=== PATIENT | female | born 1965 | race Caucasian/White ===

== ENCOUNTER 2020-08-09 10:14 | Day surgery (SDC) | payer OTHER, SELFPAY ==
--- NOTE | 2020-08-09 07:09 | W.PM.OP ---
Date of service: 08/09/20 Time of Service: 13:02 Operative Note Operative Note DATE OF PROCEDURE: 08/09/20 PRE-OP DIAGNOSIS: Carcinomatosis POST-OP DIAGNOSIS: same PROCEDURE: left Subclavian vein port-a-cath placement SURGEON: Megan Vance ANESTHESIA: MAC (ASA 3/ Robert Rosas CRNA) and local ESTIMATED BLOOD LOSS: 10 PATHOLOGY: none sent COMPLICATIONS: None Patient was transported to: same day Patient's condition: stable Implants: Power port isp MRI implantable port REF- [id number] LOT- [id number] Indications: Mrs Marcus is a pleasant 55 year old female recently diagnosed with abdominal carcinomatosis. Primary is believed to be the colon. She has started chemotherapy and would like a port placed. Risks, benefits and complications were reviewed and she wished to proceed. Procedure Description: After informed consent was obtained the patient was taken to the operating room and placed in supine position. The patient was placed under deep sedation and once comfortable the right and left chest were prepped and draped in a sterile surgical fashion. At this point a timeout was done. The patient's name, date of , procedure to be done, potential complications, DVT prophylaxis, antibiotic given were all reviewed. Fire risk was assessed. Next 2% lidocaine mixed with half percent Marcaine was injected around the clavicle on the left side. A power port kit was opened and using the large 18-gauge needle the subclavian vein was found and venous blood was easily aspirated. The syringe was removed and the guidewire was placed without any difficulty into the subclavian vein. The needle was removed. Fluoroscopy was then done which confirmed the placement of the guidewire. A small incision was made in the skin were the guidewire entered. A small 2.5 cm incision wsa made on the chest wall. Using cautery a pocket was created for the port. Using the tunneler the catheter was tunneled from the newly created pocket to the guidewire. The dilator and sheath were then placed over the guidewire into the subclavian vein. The dilator and guidewire were removed. The catheter was then advanced through the sheath into the subclavian vein. While holding the catheter in place at the skin the sheath was removed. Fluoroscopy was then used again and the catheter was noted to be within the atrium and so it was pulled up until it was just above the atrium. The catheter was then cut to the right length and attached to the port. The port was placed into the pocket and fit snugly. The port was flushed with normal saline and a small amount of blood was easily aspirated. The port was then flushed with another 10 cc of normal saline and then heparin. The skin was closed using 4-0 Vicryl. The skin was cleaned and dried and skin affix was applied to the port site as well as to the small stab incision underneath the clavicle. The patient was woken up and taken back to same day surgery in stable condition. Sponge, instrument, and needle counts were correct at the end of the case. A stat chest x-ray was ordered and is pending at this time.
--- NOTE | 2020-08-09 07:10 | W.PM.DSUDISC ---
Discharge Plan Disposition Patient Disposition: HOME Condition: Good Discharge Details Reason For Visit: Port placement Attending Provider: Megan Vance Primary Care Provider: Destini Greene Home Meds and New Rx's Prescriptions: Continued glimepiride 1 MG tablet 1 mg PO DAILY RF: 0 pioglitazone [Actos] 30 MG tablet 30 mg PO DAILY RF: 0 losartan [Cozaar] 100 MG tablet 25 mg PO DAILY RF: 0 metformin 500 MG tablet 1,000 mg PO BID RF: 0 Januvia 100 MG tablet 100 mg PO DAILY RF: 0 acetaminophen [Tylenol] 325 mg capsule 650 mg PO Q6H PRNRF: 0 tramadol 50 mg tablet 50 mg PO Q6H PRNRF: 0 simvastatin 20 mg tablet 20 mg PO DAILY RF: 0 enoxaparin 40 mg/0.4 mL syringe 40 mg subcut DAILY RF: 0 No Action pantoprazole [Protonix] [address] For Susp In Packet 40 mg PO DAILY RF: 0 Discharge Instructions Instructions: How to Care for Your Implanted Venous Access Port (DC) Additional Instructions: Activity at Home after surgery: 1. Make sure you walk outside at least 4 times per day 2. You should be able to climb a flight of stairs 3. No driving while in pain or taking pain medications Diet, Nutrition, & wound healin. Avoid alcohol until after you are recovered from your surgery 2. Make sure to eat plenty of lean protein (meat, fish, eggs, cottage cheese, beans) 3. Eat a variety of fruits and vegetables. Eat plenty of high fiber foods to avoid constipation. 4. Drink plenty of liquids to stay hydrated and avoid constipation Pain Medications: 1. Tylenol 650 mg every 6 hours and Ibuprofen 600 mg every 6 hours as needed for pain For Constipation: 1. Take Milk of Magnesia or MiraLax as needed for constipation Other: 1. You may shower daily. Do not scrub the incisions 2. Do not soak the incisions for 1 week 3. You may alternate ice and heat as needed for pain and swelling Wound Care: 1. Keep the incisions clean and dry Please call our office if you develop: 1. Fevers >101.5 2. Nausea or Vomiting 3. Worsening pain 4. Redness and thick discharge from the wounds If after hours please call the Hospital at and ask to speak to the on-call surgeon Activity:: Activity as Tolerated Diet:: As Tolerated Discharge Orders Discharge Orders: Discharge Order (Routine); Ordered 08/09/20 Ordered By: Megan Vance
--- NOTE | 2020-08-09 09:33 | W.PREOPHP ---
Date of service: 08/09/20 Time of Service: 11:52 Assessment and Plan Assessment and plan (1) Abdominal carcinomatosis: Status: Acute Assessment and plan: 55 year old female diagnosed with carcinomatosis. primary is suspected to be colon. She is here today for a port placement for chemotherapy. Risks, benefits and complications were reviewed as well as the procedure itself. Risks, benefits, complications of Mediport placement were reviewed with the patient. Complications include but are not limited to bleeding, infection, wound dehiscence, skin necrosis, seroma, hematoma, injury to subclavian vein or superior vena cava, pneumothorax, venous thrombosis and malfunction of the port. Questions were entertained and answered to his satisfaction and he wished to proceed. No guarantees were given or implied. History of Present Illness History of Present Illness Chief Complaint: omental carcinomatosis/ ovarian cancer Narrative: Mrs. Marcus is a pleasant 55 year old female who is here today for a port-placement. She was diagnosed with omental carcinomatosis on 07/15 while visiting her son in [facility]. She underwent surgery and is now going to be starting chemotherapy with Dr. Velazquez. The primary is believed to be colon. She did have a total Hysterectomy, oopherectomy and colon resection with anastamosis. She has HTN diabetes type 2 Review of Systems Cardiovascular Cardiovascular: Denies chest pain, Denies chest pain at rest, Denies irregular heart rhythm, Denies dyspnea and Denies dyspnea on exertion Respiratory Respiratory: Reports cough, Denies dyspnea and Denies dyspnea on exertion Gastrointestinal Gastrointestinal: Reports as per HPI Genitourinary Genitourinary: Denies dysuria, Reports urinary incontinence and Denies urinary urgency Endocrine Endocrine: Reports system reviewed and no additional complaints, except as documented Hematologic/Lymphatic Hematologic/Lymphatic: Denies easy bruising and Denies lymphadenopathy [facility] Medical History Colon cancer Diabetes mellitus, type 2 Hyperlipidemia Hypertension Surgical History (Updated 08/09/20 @ 10:30 by Leoncio Page) section (~1985) Colonoscopy - MAC (08/14/16) History of appendectomy Hx of hysterectomy 07/15/20 Ligation of fallopian tube 1990 Family History (Updated 01/09/14 @ 21:37 by ) Other Diabetes Heart disease Personal history of malignant neoplasm Social History Smoking/Tobacco Use Status: Never Smoking risk assessment performed?: Yes Alcohol Intake: current Alcohol Intake frequency: holidays/special occasions only Drug use: Never Substance use type: does not use Do you feel safe at home: Yes Do you feel safe in your relationship?: Yes Meds Home Medications and Allergies Home Medications Medication Instructions Recorded Confirmed Type glimepiride 1 mg PO DAILY tab-cap 12/21/12 08/09/20 History losartan [Cozaar] 25 mg PO DAILY tab-cap 12/21/12 08/09/20 History pioglitazone [Actos] 30 mg PO DAILY tab-cap 12/21/12 08/09/20 History Januvia 100 mg PO DAILY tab-cap 07/29/16 08/09/20 History metformin 1,000 mg PO BID tab-cap 07/29/16 08/09/20 History enoxaparin 40 mg SUBCUT DAILY 08/07/20 08/09/20 History simvastatin 20 mg PO DAILY 08/07/20 08/09/20 History acetaminophen 325 mg capsule 650 mg PO Q6H PRN cap 08/08/20 History tramadol 50 mg tablet 50 mg PO Q6H PRN 08/08/20 History pantoprazole [Protonix] 40 mg PO DAILY 08/09/20 08/09/20 History Allergies Allergy/AdvReac Type Severity Reaction Status Date / Time Penicillins Allergy Unknown Skin Rash Unverified 08/07/20 09:01 metoclopramide HCl AdvReac Severe Headache Unverified 08/14/16 08:40 [From Reglan] prochlorperazine edisylate AdvReac Severe Nausea Unverified 08/14/16 08:40 [From Compazine] prochlorperazine maleate AdvReac Severe Nausea Unverified 08/14/16 08:40 [From Compazine] d.h.e. AdvReac Severe Headache Uncoded 08/14/16 08:40 Exam Const General: healthy appearing and comfortable Resp Effort & Inspection: normal respiratory effort Auscultation: clear to auscultation bilaterally Cardio Rate: regular rate Rhythm: regular rhythm Heart Sounds: no click, no gallops and no murmurs
[2020-08-09 10:37] VITALS: BP 137/88; PULSE 79; RESP 16; TEMP 36.6; O2SAT 97
[2020-08-09] MEDS: Lactated Ringers 1,000 ML 80 ML IV (11:12)
--- NOTE | 2020-08-09 11:30 | DI.RAD_ITS ---
EXAM: RF LINE PLACEMENT OR CLINICAL HISTORY: port placement TECHNIQUE: 2D and realtime digital imaging was performed. CONTRAST MATERIAL: Refer to procedure report. COMPARISON: No exams were available for comparison FINDINGS: Fluoroscopy was provided for Dr. Vance during the performance of a port placement. Please refer to the procedure report for complete details. Fluoro time: 7.7 seconds IMPRESSION:
[2020-08-09] MEDS: ceFAZolin 2 GM/50 ML BAG IVPB (12:30)
[2020-08-09] MEDS: Bupivacaine 0.5% Pres-Free 30 ML VIAL (12:55)
[2020-08-09] MEDS: Heparin 500 UNITS/5 ML SYRINGE (12:55)
--- NOTE | 2020-08-09 13:00 | DI.RAD_ITS ---
EXAM: XR PORTABLE CHEST AP POST LINE CLINICAL HISTORY: post port placement TECHNIQUE: 2D digital imaging was performed. COMPARISON: No exams were available for comparison FINDINGS: MEDIASTINUM: Normal. HEART: Normal. PULMONARY VASCULATURE: Normal. LUNGS: Clear. PLEURAL SPACE: No pleural effusion or pneumothorax. BONE:Within normal limits for the patient's age. OTHER FINDINGS:There is a indwelling central venous catheter in place via the left subclavian vein. The tip of the catheter is seen in the superior vena cava in good position. IMPRESSION: Status post port placement. The tip of the catheter is in good position in the superior vena cava. No pneumothorax. DATA REPOSITORY: RADIATION DOSE DELIVERED:
[2020-08-09] MEDS: Lidocaine 2% Multi-Dose 50 ML VIAL (13:14)
[2020-08-09] MEDS: Normal Saline 20 ML VIAL (13:15)
[2020-08-09 13:43] VITALS: BP 110/72; PULSE 71; RESP 16; TEMP 36.7; O2SAT 95
== END 2020-08-09 14:08 | disposition home or self-care (01) ==
LOC: SUR 10:15
PROVIDERS: PCP Family Medicine; Visit Provider Surgery
PROC: (CPT 36571; principal; 2020-08-09 11:45)
DX: Z45.2 Encounter for adjustment and management of vascular access device (principal); C80.0 Disseminated malignant neoplasm, unspecified
CPT/HCPCS: 36571; 77001; 71045; 76000; NC; C1788; J0690; J2001; J2250; J2405

== ENCOUNTER 2020-08-09 13:46 | Outpatient (REF) | payer OTHER, SELFPAY ==
[2020-08-09 14:09] LABS: Abs Immature Grans 0.09 10^3/uL (0.0-0.06); Absolute Basophil Count 0.05 10^3/uL (0.0-0.2); Absolute Eosinophil Count 0.19 10^3/uL (0.0-0.7); Absolute Lymphocyte Count 1.85 10^3/uL (1.2-3.4); Absolute Monocyte Count 0.48 10^3/uL (0.1-0.8); Absolute Neutrophil Count 4.46 10^3/uL (1.2-6.7); Basophils % 0.7; Eosinophils % 2.7; HCT 38.5 % (36.0-46.0); HGB 12.2 g/dL (11.2-15.7); Immature Grans % 1.3; MCH 26.6 pg (27.0-33.0); MCHC 31.7 % (32.0-36.0); MCV 84.1 fL (80-95); MPV 9.6 fL (8.0-11.0); Monocytes % 6.7; Neutrophils % 62.6; Nucleated RBC 0 %; Platelet Count 517 10^3/uL (130-400); RBC 4.58 10^6/uL (3.93-5.22); RDW 11.9 % (11.7-14.6); RDW-SD 36.1 fL; WBC 7.12 10^3/uL (4.4-10.8)
[2020-08-09 14:42] LABS: ALT 35 U/L (14-59); AST 19 U/L (15-37); Albumin 3.9 g/dL (3.4-5.0); Alkaline Phosphatase 247 U/L (46-116); Anion Gap 11.1 mmol/L (3-11); BUN 25 mg/dL (7-18); Bilirubin, Total 0.4 mg/dL (0.2-1.0); CO2 24.9 mmol/L (21.0-32.0); CREATININE 0.64 mg/dL (0.55-1.02); Calcium 9.5 mg/dL (8.5-10.1); Chloride 100 mmol/L (98-107); Glucose 95 mg/dL (74-106); Potassium 4.5 mmol/L (3.5-5.1); Sodium 136 mmol/L (136-145); Total Protein 7.4 g/dL (6.4-8.2)
[2020-08-09 14:44] LABS: Hemoglobin A1C 9.6 % (<5.7)
[2020-08-10 10:18] LABS: CA 125 39 U/mL (<30)
[2020-08-11 10:16] LABS: CA 19-9 35 U/mL (<35)
== END 2020-08-09 14:06 ==
LOC: LBN 13:46
PROVIDERS: PCP Family Medicine; Visit Provider Internal Medicine
DX: C76.2 Malignant neoplasm of abdomen (principal)
CPT/HCPCS: 80053; 86304; 83036; 85025; 86301

== ENCOUNTER 2020-10-02 15:36 | Outpatient (CLI) | payer OTHER, SELFPAY ==
[2020-10-02 16:07] LABS: Abs Immature Grans 0.08 10^3/uL (0.0-0.06); Absolute Basophil Count 0.05 10^3/uL (0.0-0.2); Absolute Eosinophil Count 0.25 10^3/uL (0.0-0.7); Absolute Lymphocyte Count 2.04 10^3/uL (1.2-3.4); Absolute Monocyte Count 0.45 10^3/uL (0.1-0.8); Absolute Neutrophil Count 4.71 10^3/uL (1.2-6.7); Basophils % 0.7; Eosinophils % 3.3; HCT 38.2 % (36.0-46.0); HGB 12.4 g/dL (11.2-15.7); Immature Grans % 1.1; Lymphocytes % 26.9; MCH 26.6 pg (27.0-33.0); MCHC 32.5 % (32.0-36.0); MPV 9.6 fL (8.0-11.0); Monocytes % 5.9; Neutrophils % 62.1; Nucleated RBC 0 %; Platelet Count 288 10^3/uL (130-400); RBC 4.66 10^6/uL (3.93-5.22); RDW 14.6 % (11.7-14.6); WBC 7.58 10^3/uL (4.4-10.8)
[2020-10-02 17:24] LABS: ALT 45 U/L (14-59); AST 24 U/L (15-37); Albumin 3.6 g/dL (3.4-5.0); Alkaline Phosphatase 170 U/L (46-116); Anion Gap 11.4 mmol/L (3-11); BUN 17 mg/dL (7-18); Bilirubin, Total 0.4 mg/dL (0.2-1.0); CO2 26.6 mmol/L (21.0-32.0); CREATININE 0.8 mg/dL (0.55-1.02); Calcium 9.2 mg/dL (8.5-10.1); Chloride 103 mmol/L (98-107); Glucose 116 mg/dL (74-106); Magnesium 1.9 mg/dL (1.8-2.4); Potassium 4.1 mmol/L (3.5-5.1); Sodium 141 mmol/L (136-145)
== END 2020-10-02 15:37 | disposition home or self-care (01) ==
LOC: LBO 15:37
PROVIDERS: PCP Family Medicine; Visit Provider Internal Medicine
DX: C18.9 Malignant neoplasm of colon, unspecified (principal)
CPT/HCPCS: 36415; 80053; 83735; 85025

== ENCOUNTER 2020-10-18 04:39 | Outpatient (CLI) | payer OTHER, SELFPAY ==
[2020-10-18 13:03] LABS: Abs Immature Grans 0.12 10^3/uL (0.0-0.06); Absolute Basophil Count 0.04 10^3/uL (0.0-0.2); Absolute Eosinophil Count 0.19 10^3/uL (0.0-0.7); Absolute Lymphocyte Count 2.03 10^3/uL (1.2-3.4); Absolute Monocyte Count 0.56 10^3/uL (0.1-0.8); Absolute Neutrophil Count 2.47 10^3/uL (1.2-6.7); Basophils % 0.7; Eosinophils % 3.5; HCT 39.4 % (36.0-46.0); HGB 12.9 g/dL (11.2-15.7); Immature Grans % 2.2; Lymphocytes % 37.5; MCH 27.3 pg (27.0-33.0); MCHC 32.7 % (32.0-36.0); MCV 83.3 fL (80-95); MPV 9.6 fL (8.0-11.0); Monocytes % 10.4; Neutrophils % 45.7; Nucleated RBC 0 %; RBC 4.73 10^6/uL (3.93-5.22); RDW 15.2 % (11.7-14.6); RDW-SD 46.4 fL; WBC 5.41 10^3/uL (4.4-10.8)
[2020-10-18 13:33] LABS: Diff Comment Diff Reviewed; Platelet Count 248 10^3/uL (130-400)
[2020-10-18 13:34] LABS: Polychromasia Present
[2020-10-18 13:47] LABS: ALT 69 U/L (14-59); AST 26 U/L (15-37); Albumin 3.5 g/dL (3.4-5.0); Alkaline Phosphatase 193 U/L (46-116); Anion Gap 11.5 mmol/L (3-11); BUN 17 mg/dL (7-18); Bilirubin, Total 0.3 mg/dL (0.2-1.0); CO2 24.5 mmol/L (21.0-32.0); CREATININE 0.7 mg/dL (0.55-1.02); Chloride 104 mmol/L (98-107); Glucose 147 mg/dL (74-106); Magnesium 1.9 mg/dL (1.8-2.4); Potassium 3.9 mmol/L (3.5-5.1); Sodium 140 mmol/L (136-145); Total Protein 7.1 g/dL (6.4-8.2)
[2020-10-19 09:10] LABS: CA 125 42 U/mL (<30)
[2020-10-20 09:23] LABS: CA 19-9 55 U/mL (<35)
== END 2020-10-18 04:40 | disposition home or self-care (01) ==
LOC: LBO 04:40
PROVIDERS: PCP Internal Medicine; Visit Provider Internal Medicine
DX: C18.9 Malignant neoplasm of colon, unspecified (principal)
CPT/HCPCS: 36415; 80053; 86304; 83735; 85025; 86301

== ENCOUNTER 2020-12-14 02:20 | Outpatient (CLI) | payer OTHER, SELFPAY ==
[2020-12-14 09:25] LABS: Abs Immature Grans 0.08 10^3/uL (0.0-0.06); Absolute Basophil Count 0.04 10^3/uL (0.0-0.2); Absolute Lymphocyte Count 1.52 10^3/uL (1.2-3.4); Absolute Monocyte Count 0.56 10^3/uL (0.1-0.8); Absolute Neutrophil Count 2.08 10^3/uL (1.2-6.7); Basophils % 0.9; Eosinophils % 2.3; HCT 41.1 % (36.0-46.0); HGB 13.5 g/dL (11.2-15.7); Immature Grans % 1.8; Lymphocytes % 34.7; MCH 29.7 pg (27.0-33.0); MCHC 32.8 % (32.0-36.0); MCV 90.3 fL (80-95); MPV 9.2 fL (8.0-11.0); Monocytes % 12.8; Neutrophils % 47.5; Nucleated RBC 0 %; Platelet Count 171 10^3/uL (130-400); RBC 4.55 10^6/uL (3.93-5.22); RDW-SD 46.1 fL; WBC 4.38 10^3/uL (4.4-10.8)
[2020-12-14 09:46] LABS: Hemoglobin A1C 8.1 % (<5.7)
[2020-12-14 10:19] LABS: COMMENT (LAB VIEW ONLY) 144.93 mg/dL; Microalb ug/mg Crea 20.3 ug/mg Cr
[2020-12-14 10:28] LABS: ALT 117 U/L (14-59); AST 48 U/L (15-37); Albumin 3.5 g/dL (3.4-5.0); Alkaline Phosphatase 275 U/L (46-116); Anion Gap 9.3 mmol/L (3-11); BUN 13 mg/dL (7-18); Bilirubin, Total 0.4 mg/dL (0.2-1.0); CO2 28.7 mmol/L (21.0-32.0); CREATININE 0.8 mg/dL (0.55-1.02); Calcium 8.6 mg/dL (8.5-10.1); Chloride 101 mmol/L (98-107); Glucose 257 mg/dL (74-106); Magnesium 1.5 mg/dL (1.8-2.4); Potassium 3.8 mmol/L (3.5-5.1); Sodium 139 mmol/L (136-145)
== END 2020-12-14 02:21 | disposition home or self-care (01) ==
LOC: LBO 02:20
PROVIDERS: PCP Internal Medicine; Visit Provider Internal Medicine
DX: C18.9 Malignant neoplasm of colon, unspecified (principal); E11.9 Type 2 diabetes mellitus without complications; I10 Essential (primary) hypertension
CPT/HCPCS: 36415; 80053; 82043; 82570; 83036; 83735; 85025

== ENCOUNTER 2021-06-11 02:25 | Outpatient (CLI) | payer OTHER, SELFPAY ==
[2021-06-11 12:31] LABS: Source Nasal/Nares
[2021-06-11 21:45] LABS: COVID-19 PCR Negative (Negative)
== END 2021-06-11 02:26 | disposition home or self-care (01) ==
LOC: LBO 02:25
PROVIDERS: PCP Internal Medicine; Visit Provider Surgery
DX: Z20.822 Contact with and (suspected) exposure to COVID-19 (principal); Z01.818 Encounter for other preprocedural examination
CPT/HCPCS: 87635

== ENCOUNTER 2021-06-13 12:18 | Inpatient (IN) | payer OTHER, SELFPAY ==
[2021-06-13] VITALS (18 sets, daily range): BP systolic 94–174; BP diastolic 51–99; PULSE 65–90; RESP 14–25; TEMP 36.4–37; O2SAT 92–99; BMI 29.7
--- NOTE | 2021-06-13 06:37 | ROE_ITS ---
Date of service: 06/13/21 Time of Service: 12:00 Operative Note Operative Note DATE OF PROCEDURE: 06/13/21 PRE-OP DIAGNOSIS: Biliary Dyskinesia POST-OP DIAGNOSIS: same PROCEDURE: Open Cholecystectomy SURGEON: Megan Vance LEGAL ADVISOR: Autumn Heath ANESTHESIA TYPE: General LMA/ETT Refer to Anesthesia Record ESTIMATED BLOOD LOSS: 200 PATHOLOGY: other (Gallbladder and contents) COMPLICATIONS: Other (conversion to open) Patient was transported to: PACU Patient's condition: stable Implants: None Indications: Mrs Marcus is a pleasant 56-year-old female who was unfortunately diagnosed with an obstructing colon cancer last year. She underwent a hemicolectomy with anastomosis and was started on chemotherapy. Her PET scans have shown improvement in the metastatic burden in her abdomen. She continues to be on FOLFIRI every 2 weeks and Avastin. Her Avastin has been stopped for the last 5 weeks in case that she has surgery. Her HIDA scan showed an ejection fracture of 16%. She has postprandial pain and is losing weight due to fear of eating. She has not had any cardiac or pulmonary complications from her treatment. I had a long discussion with Sallie regarding doing a laparoscopic cholecystectomy on her. There is certainly a risk of having to do this open d epending on scarring that I may find once I get in there. Because of her chemotherapy treatments she is also at higher risk for infection, wound dehiscence and hernia at her incision sites. We discussed other common complications of laparoscopic or open cholecystectomy including injury to the common bile duct, bleeding from injuries to the hepatic vessels or bleeding from the liver secondary to inflammation. After explaining all of the risks and benefits 10 he would like to proceed with laparoscopic possible open cholecystectomy as she is having a lot of pain and is unable to eat. Proceed with laparoscopic cholecystectomy possible open Findings: Dense adhesions of bowel to the midline incision as well as dense adhesions from stomach to liver Procedure Description: After informed consent was obtained the patient was brought to the operating room, placed in a supine position and monitors were applied. SCDs were applied to her lower extremities and she was placed under general anesthesia and intubated without difficulty. Her abdomen was then prepped and draped in a sterile fashion using ChloraPrep. At this point a timeout was done and the patient's name, date of , procedure type, allergies to medications, metal in her body, antibiotic and DVT prophylaxis, and fire risk was assessed. At this point Exparel mixed 50/50 with 0.25% Bupivocaine was injected just above the umbilicus into the dermis and subcutaneous tissue. A small 2 cm incision was made and dissection was done with cautery through the subcutaneous tissue down to the fascia. The subcutaneous tissue was retracted and the fascia was grasped with Raghavendra's. The fascia was sharply opened the rectus muscle was identified and swept to the side. The peritoneum was grasped and sharply opened. There were dense adhesions noted which I tried to get down so I could put in a port. As I was trying to get into the peritoneum I opened what I thought was peritoneum but ended up making a small enterotomy into the transverse colon. There was no spill of stool. The enterotomy was quickly closed with interrupted 2-0 silk sutures. The skin incision was then opened superiorly a little bit more and again dissection was done through the subcutaneous tissue with cautery. The fascia was opened sharply. There were still dense adhesions and I could not find a plane between the adhesions and the peritoneum. The skin incision was increased superiorly and again dissection was done through the subcutaneous tissue down to the fascia using cautery. The fascia was opened sharply and at this point I was able to find a plane between the peritoneum and some of the adhesions. The falciform ligament was identified and cut. I was able to then gently sweep the adhesions as well as use sharp dissection to bring down the bowel from the peritoneum. Once the bowel was reduced a abdominal retractor was placed and I was able to feel the liver. There were thick adhesions between the stomach and the liver. These were gently removed using both sharp dissection as well as some blunt dissection until I was able to see the gallbladder. The body of the gallbladder was grasped with a [place] and pulled down and out. I followed with my finger down to the neck of the gallbladder and gently dissected with a right angle the neck of the gallbladder. I was able to find the cystic duct which was small in size. I dissected at 360 degrees right at the junction with the gallbladder and placed three clips, two distal and one proximal and cut in between. I then dissected the cystic artery which was just medial to the duct again three clips were placed to distal and one proximal and the duct was cut. Some bleeding was noted and a hemostat was placed on the artery. Another clip was placed and this stopped the bleeding. The gallbladder was then dissected away from the liver bed using mostly blunt dissection as well as some cautery. Once the gallbladder was removed it was placed in formalin and sent to pathology. Next the liver bed was identified and there was some bleeding noted. The liver bed was cauterized and a piece of Surgicel was applied. A lap was placed against it and pressure was held. The lap was removed as well as the Surgicel and a little bit more bleeding was identified and this was cauterized. Another piece of Surgicel was applied to the liver bed and a lap pad was placed over that and pressure was again held. After about a minute of holding pressure the lap pad was removed as well as the Surgicel. No more bleeding was identified. I small nodular area was noted on the liver edge. This looked like calcification. The abdomen was irrigated with a liter of warm saline and the effluent was suctioned out. The effluent was clear. Next the transverse colon was inspected and a second layer of sutures was placed over the fixed enterotomy with Lembert sutures. Three sheets of Interceed were then placed over the bowel to help with adhesions. The fascia was closed with two #1 Vicryl sutures. The subcutaneous tissue was irrigated with some more saline and dried. The subcutaneous tissue was reapproximated using 3-0 Vicryl and the dermis was closed using 4-0 Vicryl. The local anesthetic was then injected into the dermis along the incision as well as into the subcutaneous tissue. The skin was cleaned and dried and a chu dressing was applied. Sponge, instrument and needle counts were correct at the end of the case. Patient was then woken up extubated taken back to PACU in stable condition. There were no immediate complications.
--- NOTE | 2021-06-13 06:39 | PDOC.DSDIS_ITS ---
Discharge Plan Disposition Patient Disposition: HOME Condition: Good Discharge Details Reason For Visit: Biliary Cholic Attending Provider: Megan Vance Primary Care Provider: Candice Velazquez Home Meds and New Rx's Prescriptions: No Action docusate sodium [Colace] 100 mg capsule 100 mg PO DAILY RF: 0 zolpidem [Ambien] 10 mg tablet 10 mg PO QHS PRNRF: 0 glimepiride 1 MG tablet 1 mg PO DAILY RF: 0 pioglitazone [Actos] 30 MG tablet 30 mg PO DAILY RF: 0 metformin 500 MG tablet 1,000 mg PO BID RF: 0 Januvia 100 MG tablet 100 mg PO DAILY RF: 0 acetaminophen [Tylenol] 325 mg capsule 650 mg PO Q6H PRNRF: 0 tramadol 50 mg tablet 50 mg PO Q6H PRNRF: 0 citalopram 20 mg tablet 20 mg PO HS RF: 0 lactulose 10 gram/15 mL solution 10 g PO DAILY RF: 0 senna 8.6 mg capsule 8.6 mg PO DAILY RF: 0 lidocaine-prilocaine 2.5-2.5 % cream 1 applic topical ONCE RF: 0 magnesium citrate Solution 50 ml PO DAILY PRNRF: 0 dexamethasone 4 mg tablet 4 mg PO BID RF: 0 ondansetron HCl 8 mg tablet 8 mg PO Q8H RF: 0 Avastin 25 mg/mL solution IV RF: 0 simvastatin 20 mg tablet 20 mg PO DAILY RF: 0 pantoprazole [Protonix] [address] For Susp In Packet 40 mg PO DAILY RF: 0 Discharge Instructions Additional Instructions: Activity at Home after surgery: 1. Make sure you walk outside at least 4 times per day 2. You should be able to climb a flight of stairs 3. No driving while in pain or taking pain medications 4. No strenuous activity or heavy lifting for 2 weeks (laparoscopic surgery) or 4 weeks (open surgery) Diet, Nutrition, & wound healin. Avoid alcohol until after you are recovered from your surgery 2. Make sure to eat plenty of lean protein (meat, fish, eggs, cottage cheese, beans) 3. Eat a variety of fruits and vegetables. Eat plenty of high fiber foods to avoid constipation. 4. Drink plenty of liquids to stay hydrated and avoid constipation Pain Medications: 1. Tylenol 650mg every 6 hours as needed and Ibuprofen 600 mg every 6 hours as needed. You may alternate between the 2 medications every 3 hours 2. If a narcotic has been prescribed take as directed only for breakthrough pain For Constipation: 1. Take Milk of Magnesia or MiraLax as needed for constipation Other: 1. You may shower daily. Do not scrub the incisions 2. Do not soak the incisions for 1 week 3. You may alternate ice and heat as needed for pain and swelling Wound Care: 1. Keep the incisions clean and dry Please call our office if you develop: 1. Fevers >101.5 2. Nausea or Vomiting 3. Worsening pain 4. Redness and thick discharge from the wounds If after hours please call the Hospital at and ask to speak to the on-call surgeon Referrals: Megan Vance MD [ [facility] STAFF PHYSICIAN] - Activity:: as above Shower/Bathe:: 24 hours Diet:: low fat
[2021-06-13] MEDS: Acetaminophen 500 MG TAB 1000 MG PO ×2 (09:51→17:17)
[2021-06-13] MEDS: Lactated Ringers 1,000 ML 80 ML IV (09:52)
[2021-06-13] MEDS: Celecoxib 200 MG CAP PO (09:52)
--- NOTE | 2021-06-13 09:57 | W.ANESPRE ---
General Info Date of Service Date Performed: 06/13/21 Height: 5 ft 4 in Weight: 78.6 kg Body Mass Index (BMI): 29.7 Surgical Procedure: Operation Date: 06/13/21 09:40 Proposed Procedures Side Surgeon p Cholecystectomy Laparoscopic Megan Vance MD Actual Procedures Side Surgeon p Cholecystectomy Laparoscopic Not Applicable Megan Vance MD Pre-Op Diagnosis Post-Op Diagnosis CHOLECYSTITIS Dyskinesia of gallbladder Meds Allergies and Home Medications Allergies Allergy/AdvReac Type Severity Reaction Status Date / Time Penicillins Allergy Unknown Skin Rash Unverified 06/13/21 09:35 metoclopramide HCl AdvReac Severe Headache Unverified 06/13/21 09:35 [From Reglan] prochlorperazine edisylate AdvReac Severe Nausea Unverified 06/13/21 09:35 [From Compazine] prochlorperazine maleate AdvReac Severe Nausea Unverified 06/13/21 09:35 [From Compazine] d.h.e. AdvReac Severe Headache Uncoded 06/13/21 09:35 Home Medication Medication Instructions Recorded glimepiride 1 mg PO DAILY tab-cap 12/21/12 pioglitazone [Actos] 30 mg PO DAILY tab-cap 12/21/12 Januvia 100 mg PO DAILY tab-cap 07/29/16 metformin 1,000 mg PO BID tab-cap 07/29/16 simvastatin 20 mg PO DAILY 08/07/20 acetaminophen 325 mg capsule 650 mg PO Q6H PRN cap 08/08/20 tramadol 50 mg tablet 50 mg PO Q6H PRN 08/08/20 pantoprazole [Protonix] 40 mg PO DAILY 08/09/20 bevacizumab 25 mg/mL intravenous IV 05/22/21 solution citalopram 20 mg tablet 20 mg PO HS 05/22/21 dexamethasone 4 mg tablet 4 mg PO BID 05/22/21 lactulose 10 gram/15 mL oral 10 g PO DAILY 05/22/21 solution lidocaine-prilocaine 2.5 %-2.5 % 1 applic TOPICAL ONCE 05/22/21 topical cream magnesium citrate 50 ml PO DAILY PRN ml 05/22/21 ondansetron HCl 8 mg tablet 8 mg PO Q8H 05/22/21 sennosides 8.6 mg capsule 8.6 mg PO DAILY 05/22/21 docusate sodium 100 mg capsule 100 mg PO DAILY 06/05/21 zolpidem 10 mg tablet 10 mg PO QHS PRN 06/05/21 Current Visit Medications: Current Medications Generic Name Dose Route Start Last Admin Trade Name Terrie PRN Reason Stop Dose Admin Acetaminophen 1,000 mg 06/13/21 06:00 06/13/21 09:51 Acetaminophen 500 Mg Tab PO 07/12/21 23:59 1,000 mg PREOP MORGAN Administration Celecoxib 200 mg 06/13/21 06:00 06/13/21 09:52 Celecoxib 200 Mg Cap PO 07/12/21 23:59 200 mg PREOP MORGAN Administration Ringer's Solution 1,000 mls @ 80 mls/hr 06/13/21 06:00 06/13/21 09:52 IV 07/12/21 23:59 80 mls/hr INFUSION MORGAN Administration Ampicillin Sodium/Sulbactam 100 mls @ 200 mls/hr 06/13/21 06:00 Sodium 3 gm/ Sodium Chloride IVPB 06/13/21 23:59 PREOP MORGAN Ondansetron HCl 4 mg/ Sodium 52 mls @ 200 mls/hr 06/13/21 06:40 Chloride IVPB Q6H PRN PRN IV Miscellaneous Supplies 1 each 06/13/21 06:00 Iv Access IV 07/12/21 23:59 DIRECTED MORGAN Oxycodone HCl 5 mg 06/13/21 06:40 Oxycodone 5 Mg Tab PO Q3H PRN PRN Pain Sodium Chloride 0 ml 06/13/21 06:00 Normal Saline Flush 10 Ml Syr IV 07/12/21 23:59 PRN PRN Sodium Chloride 0 ml 06/13/21 06:00 Normal Saline 10 Ml Vial IJ 07/12/21 23:59 DIRECTED PRN Sterile Water 0 ml 06/13/21 06:00 Water,Injection,Sterile 10 Ml Vial IJ 07/12/21 23:59 DIRECTED PRN PFSH Active Problems Active Problems: Problem Status Onset Code Dyskinesia of gallbladder K82.8 Port-A-Cath in place Z95.828 Abdominal carcinomatosis C76.2 Medical History Medical History Colon cancer Diabetes mellitus, type 2 Dyskinesia of gallbladder Hyperlipidemia Hypertension Surgical History Surgical History section (~1985) Colonoscopy - MAC (08/14/16) History of appendectomy Hx of hysterectomy 07/15/20 Ligation of fallopian tube 1990 S/P partial colectomy 2020- [place] Tobacco Smoking/Tobacco Use Status: Never Alcohol Alcohol Intake: current Alcohol intake frequency: holidays/special occasions only Substance Use Substance use: Never Substance use type: does not use Vital Signs and Lab Results Vital Signs Most Recent Vital Signs in EMR: Most Recent Vital Signs Temp Pulse Resp BP Pulse Ox 36.7 C 79 18 143/88 H 99 06/13/21 09:30 06/13/21 09:30 06/13/21 09:30 06/13/21 09:30 06/13/21 09:30 Point of Care Results Point of Care Results: Finger Stick Blood Glucose 218 06/13/21 09:47 Lab Results Blood Type / Crossmatch: No Data to Display Complete Blood Count: No Data to Display Complete Metabolic Panel: No Data to Display Liver Function Panel: No Data to Display Coagulation Panel: No Data to Display Cardiac Panel: No Data to Display Arterial Blood Gas: No Data to Display Venous Blood Gas: No Data to Display Pancreas Panel: No Data to Display Thyroid Panel: No Data to Display Infectious Disease: Coronavirus (COVID-19)(PCR) Negative (Negative) 06/11/21 11:41 06/11/21 Coronavirus 2019 Source Nasal/Nares 06/11/21 11:41 06/11/21 Blood Cultures: No Data to Display Toxicology Panel: No Data to Display Anesthesia Assessment and Plan Anesthesia History Personal History: No History of Anesthesia Complications Family History: No Family History of Anesthesia Complications Exercise Tolerance Exercise Tolerance: Metabolic Equivalents>4 Pertinent Negatives Pertinent Negatives: No Symptoms of GERD, No Major Cardiovascular Symptoms or Complaints, No Major Pulmonary Symptoms or Complaints and No History of CVA/TIA Cardiac & Pulmonary Exam Cardiac Exam: Normal S1/S2 Heart Sounds Pulmonary Exam: Clear Bilateral Breath Sounds Airway Exam Known Difficult Airway: No Mallampati Class: 1 Mouth Opening: Normal (> 3cm) Thyromental Distance: Greater than 3 cm Neck Range of Motion: Full ROM Neck Circumference: Normal Teeth Condition: Normal Dentition ASA Classification ASA Score: ASA 2 Emergency Case?: No NPO Status NPO Status: NPO Clears >2 hours, Solids >8 hours Anesthesia Plan Resuscitation Status: Full Code Anesthesia Technique: General Anesthesia Airway Planned: Endotracheal Tube Monitors Used: Standard Monitors
[2021-06-13] MEDS: AMPICILLIN/SULBACTAM 3 GM in Normal Saline 100 ML IVPB ×2 (10:08→17:17)
--- NOTE | 2021-06-13 11:40 | GB_PTH ---
PATIENT: Sallie Marcus LOC: [facility]#:[id number] AGE/SX: 56/F ROOM: RE06/15/[address]: Megan Vance MD : 1965 BED: A DIS: 06/16/2021 SPEC #: [id number] RECD: 06/13/21 13:03 STATUS: NATALIE RENelly #: [id number] JENNIFER: 06/13/21 11:[address]: Megan Vance DEPT: Surgical Specimen RECD BY: Tamanna Zuniga ENTERED: 06/13/21 13:03 SP TYPE: GB OTHR DR: Candice Velazquez Tissues: 1 - GALLBLADDER Procedures: GROSS AND MICRO LEVEL 3 Comments: [id number]
[2021-06-13] MEDS: Cellulose,Oxidized 4X8 1 PACKET MC (11:49)
[2021-06-13] MEDS: Bupivacaine 0.25% Pres-Free 30 ML VIAL (12:32)
[2021-06-13] MEDS: Bupivacaine LIPOSOME/PF 133 MG/10 ML VIAL IJ (12:32)
[2021-06-13] MEDS: fentaNYL 100 MCG/2 ML VIAL IVP ×2 (14:20→14:56)
--- NOTE | 2021-06-13 14:23 | W.ANESPOSTOP ---
Postoperative Evaluation Date, Time and Location Date Performed: 06/13/21 Time Performed: 14:23 Patient Location: Day Surgery Unit Vital Signs Most Recent Imported Vital Signs: Most Recent Vital Signs Temp Pulse Resp BP Pulse Ox 36.9 C 81 21 133/71 96 06/13/21 14:05 06/13/21 14:05 06/13/21 14:05 06/13/21 14:05 06/13/21 14:05 Pain Score Most Recent Pain Score: Most Recent Pain Score Pain Level 3 06/13/21 09:30 Assessment Mental Status: Awake (Alert & Oriented to Patient Baseline) Airway and Respiratory Function: Patent airway with normal (patient baseline) respiratory exam Cardiovascular Function: Hemodynamically Stable Hydration Status: Adequately Hydrated Nausea & Vomiting: No Nausea or Vomiting Pain: Pain is tolerable per patient Peripheral Nerve Block: Patient did not receive a nerve block
[2021-06-13] MEDS: Ketorolac 30 MG/ML VIAL IV ×2 (14:34→19:45)
[2021-06-13] MEDS: Lactated Ringers 1,000 ML 75 ML IV (14:37)
[2021-06-13] MEDS: Normal Saline Flush 10 ML SYR IV (16:26)
[2021-06-13] MEDS: MORPHine 2 MG/ML SYR IVP ×3 (16:26→22:48)
[2021-06-13] MEDS: Normal Saline 500 ML 100 ML IV (17:17)
[2021-06-13] MEDS: Insulin Aspart 300 UNITS/3 ML PEN SC (17:18)
[2021-06-13] MEDS: metFORMIN 500 MG TAB 1000 MG PO (19:46)
[2021-06-13] MEDS: Docusate Sodium 100 MG CAP PO (19:46)
[2021-06-13] MEDS: Simvastatin 20 MG TAB PO (19:46)
[2021-06-13] MEDS: Dexamethasone 4 MG TAB PO (19:46)
[2021-06-13] MEDS: Citalopram 20 MG TAB PO (22:41)
[2021-06-13] MEDS: Melatonin 3 MG TAB PO (22:41)
[2021-06-14] MEDS: Acetaminophen 500 MG TAB 1000 MG PO ×4 (02:38→17:44)
[2021-06-14] MEDS: Ketorolac 30 MG/ML VIAL IV ×4 (02:39→20:01)
[2021-06-14] MEDS: AMPICILLIN/SULBACTAM 3 GM in Normal Saline 100 ML IVPB ×3 (02:39→17:45)
[2021-06-14] MEDS: Lactated Ringers 1,000 ML 75 ML IV (03:51)
[2021-06-14] MEDS: MORPHine 2 MG/ML SYR IVP ×2 (05:17→12:42)
[2021-06-14 07:10] LABS: Abs Immature Grans 0.23 10^3/uL (0.0-0.06); Absolute Monocyte Count 0.49 10^3/uL (0.1-0.8); Basophils % 0.3; HCT 34.4 % (36.0-46.0); HGB 11.1 g/dL (11.2-15.7); Immature Grans % 1.5; Lymphocytes % 5.8; MCH 29.1 pg (27.0-33.0); MCHC 32.3 % (32.0-36.0); MCV 90.3 fL (80-95); MPV 9.5 fL (8.0-11.0); Monocytes % 3.3; Neutrophils % 89.1; Nucleated RBC 0 %; Platelet Count 207 10^3/uL (130-400); RBC 3.81 10^6/uL (3.93-5.22); RDW 14.5 % (11.7-14.6); RDW-SD 47.8 fL
[2021-06-14 07:21] LABS: Absolute Basophil Count 0.04 10^3/uL (0.0-0.2); Absolute Lymphocyte Count 0.86 10^3/uL (1.2-3.4); Absolute Neutrophil Count 13.28 10^3/uL (1.2-6.7)
[2021-06-14 07:39] LABS: ALT 189 U/L (14-59); AST 139 U/L (15-37); Albumin 2.7 g/dL (3.4-5.0); Alkaline Phosphatase 298 U/L (46-116); Anion Gap 7.7 mmol/L (3-11); BUN 9 mg/dL (7-18); Bilirubin, Total 1.2 mg/dL (0.2-1.0); CO2 28.3 mmol/L (21.0-32.0); CREATININE 0.6 mg/dL (0.55-1.02); Chloride 100 mmol/L (98-107); Glucose 284 mg/dL (74-106); Potassium 4.3 mmol/L (3.5-5.1); Sodium 136 mmol/L (136-145); Total Protein 6.1 g/dL (6.4-8.2)
--- NOTE | 2021-06-14 07:39 | W.PM.PROGNOT ---
Date of Service Date of service: 06/14/21 Time of Service: 07:39 Assessment and Plan Assessment and plan (1) Dyskinesia of gallbladder: Status: Acute Assessment and plan: POD #1 s/p open cholecystectomy DIET- Clear Liquids PAIN- Currently well controlled No BM Urinating without difficulty ACTIVITY- Ambulation as tolerated, Encouraged sitting up in the chair for all meals. Pulmonary Toilet AINSLEY Dressing in place, to remain in place for 5-7 days Increase activity as tolerated Subjective Subjective Interval history since last seen: patient reports that she is feeling well this morning. She reports having had a rough night secondary to the noise from other patients. She denies passing any flatus or BMs. She denies any fevers or chills. Exam Const General: cooperative, healthy appearing and comfortable Orientation: alert and oriented x3 Resp Effort & Inspection: normal respiratory effort, no audible wheezes and no cough Auscultation: clear to auscultation bilaterally GI Inspection: non-distended and incision (Midline dressed with AINSLEY dressing ) Palpation: soft, no guarding and tender (Surrounding incision sites) Objective Last Vital Signs Temp 36.7 C 06/13/21 23:40 Pulse 73 06/13/21 23:40 Resp 20 06/13/21 23:40 BP 149/84 H 06/13/21 23:40 Pulse Ox 92 06/13/21 23:40 Laboratory Results - last 24 hr 06/14/21 06:35 WBC 14.90 H RBC 3.81 L Hgb 11.1 L Hct 34.4 L MCV 90.3 MCH 29.1 MCHC 32.3 RDW 14.5 Plt Count 207 MPV 9.5 Immature Gran % 1.5 Neutrophils % 89.1 Lymphocytes % 5.8 Monocytes % 3.3 Eosinophils % 0.0 Basophils % 0.3 Nucleated RBC % 0 Absolute Neutrophils 13.28 H Absolute Lymphocytes 0.86 L Absolute Monocytes 0.49 Absolute Eosinophils 0.00 Absolute Basophils 0.04
[2021-06-14 07:50] VITALS: BP 166/99; PULSE 85; RESP 17; TEMP 36.5; O2SAT 95
[2021-06-14] MEDS: Psyllium PKT 1 EACH PO (08:12)
[2021-06-14] MEDS: Dexamethasone 4 MG TAB PO ×2 (08:13→20:00)
[2021-06-14] MEDS: Docusate Sodium 100 MG CAP PO ×3 (08:13→20:00)
[2021-06-14] MEDS: Insulin Aspart 300 UNITS/3 ML PEN SC ×3 (08:13→16:53)
[2021-06-14] MEDS: metFORMIN 500 MG TAB 1000 MG PO ×2 (08:13→20:00)
[2021-06-14] MEDS: Normal Saline Flush 10 ML SYR IV (08:31)
[2021-06-14] MEDS: Glimepiride 1 MG TAB PO (08:41)
[2021-06-14] MEDS: Senna TAB 8.6 TAB PO (08:41)
[2021-06-14] MEDS: SITagliptin 100 MG TAB PO (08:41)
[2021-06-14] MEDS: Enoxaparin 40 MG/0.4 ML SYR SC (10:20)
--- NOTE | 2021-06-14 11:08 | PDOC.CMIN ---
- If Service Date Differs Date of service: 06/14/21 Time of Service: 11:08 Care Management Initial Assess REASON FOR HOSPITALIZATION:: Biliary colic PAST MEDICAL HISTORY/PAST SURGICAL HISTORY:: Medical History (Updated 06/05/21 @ 12:28 by Megan Vance MD). Colon cancer. Diabetes mellitus, type 2. Dyskinesia of gallbladder. Hyperlipidemia. Hypertension. Surgical History (Updated 06/05/21 @ 12:28 by Megan Vance MD). section (~1985). Colonoscopy - MAC (08/14/16). History of appendectomy. Hx of hysterectomy. 07/15/20. Ligation of fallopian tube. 1990. S/P partial colectomy. 2019- [place] PREVIOUS FUNCTIONAL STATUS/SOCIAL/FAMILY SUPPORTS:: Sallie lives in [place] with her [place]. She has 3 children who live in various parts of the [facility] [place]. 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 She is independent at baseline and receives no community services. CURRENT FUNCTIONAL STATUS:: Sallie was sitting up in bed when CM met with her. She became very teary when discussing her children. She shared that she misses them greatly. She did see 2 of them in March and plans to visit the 3rd child in June. They live in [facility]. Betsey stated that she is still having pain and rated it about a 7/10 at the time of CM visit. Her diet is being advanced and, if tolerasted, and if her pain is controlled, she will likely be discharged in the next day or 2. ADVANCE DIRECTIVES:: none on file Has patient been provided with info about the portal/API?: Yes Did the patient sign up for the portal?: No CODE STATUS:: Full Code INSURANCE COVERAGE / FINANCIAL ISSUES:: [facility] CURRENT HOME/COMMUNITY SERVICES/EQUIPMENT:: none PRIMARY CARE PHYSICIAN:: Candice Velazquez POTENTIAL DISCHARGE NEEDS:: Follow up with surgeon and plan of care PATIENT/FAMILY EDUCATION NEEDS:: Review of discharge instructions, limitations, activity, medicatrions, follow up plan, Ask Me Three TRANSPORTATION:: via private vehicle with family PLAN:: Sallie will likely be discharged home with no new services. She rodrigo follow up with her PCP, surgeon and plan of care and transport with family. CM will continue to support her discharge planning needs.
[2021-06-14 11:58] VITALS: BP 122/71; PULSE 71; RESP 17; TEMP 36.8; O2SAT 95
[2021-06-14] MEDS: Pantoprazole 40 MG VIAL IVP (12:37)
[2021-06-14] MEDS: Normal Saline Flush 10 ML SYR IVP ×3 (12:37→19:59)
[2021-06-14 14:39] VITALS: BP 142/91; PULSE 82; RESP 17; TEMP 36.8; O2SAT 97
[2021-06-14] MEDS: Simvastatin 20 MG TAB PO (20:00)
[2021-06-14] MEDS: Citalopram 20 MG TAB PO (21:14)
[2021-06-14] MEDS: Melatonin 3 MG TAB PO (21:14)
[2021-06-14 23:36] VITALS: BP 148/90; PULSE 84; RESP 17; TEMP 36.5; O2SAT 97
[2021-06-15] MEDS: Ketorolac 30 MG/ML VIAL IV (02:48)
[2021-06-15] MEDS: AMPICILLIN/SULBACTAM 3 GM in Normal Saline 100 ML IVPB (02:49)
[2021-06-15] MEDS: Acetaminophen 500 MG TAB 1000 MG PO ×3 (02:49→17:57)
--- NOTE | 2021-06-15 07:46 | W.PM.PROGNOT ---
Date of Service Date of service: 06/15/21 Time of Service: 07:46 Assessment and Plan Assessment and plan (1) Dyskinesia of gallbladder: Status: Acute Assessment and plan: POD #2 s/p open cholecystectomy DIET- Continue Soft diet PAIN- Currently well controlled, transitioning to PO meds No BM Urinating without difficulty ACTIVITY- Ambulation as tolerated, Encouraged sitting up in the chair for all meals. Pulmonary Toilet AINSLEY Dressing in place, to remain in place for 5-7 days Increase activity as tolerated Possible d/c home later today. Subjective Subjective Interval history since last seen: Patient is tolerating a soft diet. She reports abdominal pain with movement. She reports that she walked yesterday. Denies having a BM. Exam Const General: cooperative, healthy appearing and comfortable Orientation: alert and oriented x3 Resp Effort & Inspection: normal respiratory effort, no audible wheezes and no cough GI Inspection: normal to inspection Palpation: soft, no guarding and tender (around the incision site. ) Objective Last Vital Signs Temp 36.5 C 06/14/21 23:36 Pulse 84 06/14/21 23:36 Resp 17 06/14/21 23:36 BP 148/90 H 06/14/21 23:36 Pulse Ox 97 06/14/21 23:36
[2021-06-15 07:57] VITALS: BP 158/91; PULSE 67; RESP 17; TEMP 36.8; O2SAT 96
[2021-06-15] MEDS: oxyCODONE 5 MG TAB PO ×4 (08:58→21:39)
[2021-06-15] MEDS: metFORMIN 500 MG TAB 1000 MG PO ×2 (08:59→19:42)
[2021-06-15] MEDS: Dexamethasone 4 MG TAB PO ×2 (08:59→19:43)
[2021-06-15] MEDS: Glimepiride 1 MG TAB PO (08:59)
[2021-06-15] MEDS: Docusate Sodium 100 MG CAP PO ×3 (08:59→19:42)
[2021-06-15] MEDS: Psyllium PKT 1 EACH PO (09:00)
[2021-06-15] MEDS: Senna TAB 1 TAB PO (09:00)
[2021-06-15] MEDS: SITagliptin 100 MG TAB PO (09:00)
[2021-06-15] MEDS: Insulin Aspart 300 UNITS/3 ML PEN SC ×3 (09:00→16:59)
[2021-06-15] MEDS: Enoxaparin 40 MG/0.4 ML SYR SC (10:27)
[2021-06-15 10:30] VITALS: O2SAT 96
[2021-06-15 11:30] VITALS: BP 135/79; PULSE 69; RESP 17; TEMP 36.9; O2SAT 97
--- NOTE | 2021-06-15 16:27 | PDOC.CMPRO ---
Care Management Progress Note S/O: Per provider, Sallie continues to experience pain around her incision. Anticipate she will discharge tomorrow, with no additional services needed at this time. CM continues to follow. A: 56 year old female admitted to [facility] 06/13/21 for Post Op Pain P: Sallie will be discharged home with no new services. She rodrigo follow up with her PCP, surgeon and plan of care and transport with family. CM will continue to support her discharge planning needs.
[2021-06-15 16:38] VITALS: BP 158/90; PULSE 85; RESP 18; TEMP 36.9; O2SAT 96
[2021-06-15] MEDS: Ibuprofen 400 MG TAB PO (17:00)
[2021-06-15] MEDS: Simvastatin 20 MG TAB PO (19:42)
[2021-06-15] MEDS: Citalopram 20 MG TAB PO (21:34)
[2021-06-15] MEDS: Melatonin 3 MG TAB PO (21:34)
[2021-06-15 23:27] VITALS: BP 157/81; PULSE 72; RESP 16; TEMP 36.7; O2SAT 96
[2021-06-16] MEDS: Acetaminophen 500 MG TAB 1000 MG PO ×2 (02:23→09:59)
[2021-06-16 08:10] VITALS: BP 148/87; PULSE 67; RESP 18; TEMP 36.5; O2SAT 97
[2021-06-16] MEDS: Insulin Aspart 300 UNITS/3 ML PEN SC ×2 (08:27→11:55)
[2021-06-16] MEDS: Ibuprofen 400 MG TAB PO (08:27)
[2021-06-16] MEDS: oxyCODONE 5 MG TAB PO (08:27)
[2021-06-16] MEDS: metFORMIN 500 MG TAB 1000 MG PO (08:28)
[2021-06-16] MEDS: Dexamethasone 4 MG TAB PO (08:28)
[2021-06-16] MEDS: Omeprazole 20 MG CAPCR PO (08:28)
[2021-06-16] MEDS: Glimepiride 1 MG TAB PO (08:28)
[2021-06-16] MEDS: Psyllium PKT 1 EACH PO (08:28)
[2021-06-16] MEDS: SITagliptin 100 MG TAB PO (08:28)
[2021-06-16] MEDS: Senna TAB 1 TAB PO (08:28)
[2021-06-16] MEDS: Docusate Sodium 100 MG CAP PO ×2 (08:28→13:23)
[2021-06-16] MEDS: Normal Saline Flush 10 ML SYR IVP (08:29)
[2021-06-16] MEDS: Enoxaparin 40 MG/0.4 ML SYR SC (09:59)
--- NOTE | 2021-06-16 11:49 | W.PM.DS.N ---
Date of service: 06/16/21 Time of Service: 11:49 DS: Diagnosis Discharge Diagnosis (1) Dyskinesia of gallbladder: Status: Acute Discharge Plan Disposition Patient Disposition: HOME Condition: Good Discharge Details Reason For Visit: Post OP Pain Admit Date/Time: 06/15/21 13:43 Admit Provider: Megan Vance Attending Provider: Megan Vance Primary Care Provider: Candice Velazquez [place] Meds and New Rx's Prescriptions: New oxycodone 5 mg tablet 5 mg PO Q6H PRNQty: 14 RF: 0 No Action docusate sodium [Colace] 100 mg capsule 100 mg PO DAILY RF: 0 zolpidem [Ambien] 10 mg tablet 10 mg PO QHS PRNRF: 0 glimepiride 1 MG tablet 1 mg PO DAILY RF: 0 pioglitazone [Actos] 30 MG tablet 30 mg PO DAILY RF: 0 metformin 500 MG tablet 1,000 mg PO BID RF: 0 Januvia 100 MG tablet 100 mg PO DAILY RF: 0 acetaminophen [Tylenol] 325 mg capsule 650 mg PO Q6H PRNRF: 0 tramadol 50 mg tablet 50 mg PO Q6H PRNRF: 0 citalopram 20 mg tablet 20 mg PO HS RF: 0 lactulose 10 gram/15 mL solution 10 g PO DAILY RF: 0 senna 8.6 mg capsule 8.6 mg PO DAILY RF: 0 lidocaine-prilocaine 2.5-2.5 % cream 1 applic topical ONCE RF: 0 magnesium citrate Solution 50 ml PO DAILY PRNRF: 0 dexamethasone 4 mg tablet 4 mg PO BID RF: 0 ondansetron HCl 8 mg tablet 8 mg PO Q8H RF: 0 Avastin 25 mg/mL solution IV RF: 0 simvastatin 20 mg tablet 20 mg PO DAILY RF: 0 pantoprazole [Protonix] [address] For Susp In Packet 40 mg PO DAILY RF: 0 Discharge Instructions Additional Instructions: Activity at Home after surgery: 1. Make sure you walk outside at least 4 times per day 2. You should be able to climb a flight of stairs 3. No driving while in pain or taking pain medications 4. No strenuous activity or heavy lifting for 2 weeks (laparoscopic surgery) or 4 weeks (open surgery) 5. No driving for 7 days or if you are taking narcotic pain medication Diet, Nutrition, & wound healin. Avoid alcohol until after you are recovered from your surgery 2. Make sure to eat plenty of lean protein (meat, fish, eggs, cottage cheese, beans) 3. Eat a variety of fruits and vegetables. Eat plenty of high fiber foods to avoid constipation. 4. Drink plenty of liquids to stay hydrated and avoid constipation Pain Medications: 1. Tylenol 650mg every 6 hours and Ibuprofen 600 mg every 6 hours. You may alternate between the 2 medications every 3 hours. Take continuously for the next 5 days. 2. If a narcotic has been prescribed take as directed only for breakthrough pain. Oxycontin for pain >7. This medication will make you very constipated. Take MOM or Miralax if you take this medication. Ice- 20 mins on and 20 mins off. Use continuously. For Constipation: 1. Take Milk of Magnesia or MiraLax as needed for constipation Other: 1. sponge Bathe while PICOs dressing is in place. The PICOs will be removed at the office appt on Friday, 2. Do not soak the incisions for 1 week 3. You may alternate ice Wound Care: 1. Keep the incisions clean and dry 2. You will need to call the office on Friday to find out what time your appointment is. The office open at 8am Friday. Please call our office if you develop: 1. Fevers >101.5 2. Nausea or Vomiting 3. Worsening pain 4. Redness and thick discharge from the wounds If after hours please call the Hospital at and ask to speak to the on-call surgeon Stand Alone Forms: Nursing Discharge Form Referrals: Megan Vance MD [ [facility] STAFF PHYSICIAN] - (Please call Friday to make a follow up appointment.) Activity:: see above Equipment/Supplies:: No Equipment Needed Diet:: low fat DS: Summary Time Spent with Patient providing and/or coordinating discharge services: Less than 30 minutes Status at Discharge Functional status at discharge: independent ambulation Overall status at discharge: patient is progressing back to baseline Mental Status: mental status grossly normal Speech and Movement: speech and movement normal Mood: congruent mood Affect: normal affect Exam Psych Mental Status: mental status grossly normal Speech and Movement: speech and movement normal Mood: congruent mood Affect: normal affect DS: Data Vitals/I&O Vitals and I&O: Vital Signs Temperature 36.5 C 06/16/21 08:10 Temperature Source Temporal Artery Scan 06/16/21 08:10 Pulse 67 06/16/21 08:10 Pulse Rhythm Regular 06/16/21 08:15 Respiratory Rate 18 06/16/21 08:10 Respiratory Effort 06/16/21 08:15 Respiratory Depth Normal 06/16/21 08:15 Respiratory Pattern Normal 06/16/21 08:15 Blood Pressure 148/87 H 06/16/21 08:10 Pulse Oximetry 97 06/16/21 08:10 Respiratory End-tidal CO2 36 06/13/21 15:05 Oxygen Delivery Method Room Air 06/16/21 08:10 Oxygen Flow Rate 0 06/16/21 08:10 Pain Level 3 06/16/21 09:59 Intake & Output 06/15/21 06/15/21 06/16/21 11:59 23:59 11:59 Intake Total 440 / 440 Output Total 800 / 1400 600 / 1400 Balance -800 / -960 -160 / -960 Intake: Oral 440 / 440 Output: Urine 800 / 1400 600 / 1400 Other: Urine Color Yellow Yellow Urine Appearance Clear Cloudy Cloudy Urine Odor Normal Stool Size Small Moderate Stool Characteristics Soft Formed Formed Hard Brown Voiding Methods Toilet Toilet [facility] Medical History Colon cancer Diabetes mellitus, type 2 Dyskinesia of gallbladder Hyperlipidemia Hypertension Surgical History section (~1985) Colonoscopy - MAC (08/14/16) History of appendectomy Hx of hysterectomy 07/15/20 Ligation of fallopian tube 1990 S/P partial colectomy 2019[place] Family History Other Diabetes Heart disease Personal history of malignant neoplasm Social History Smoking/Tobacco Use Status: Never Smoking risk assessment performed?: Yes Alcohol Intake: current Alcohol Intake frequency: holidays/special occasions only Drug use: Never Substance use type: does not use Current gender identity: female Do you feel safe at home: Yes Do you feel safe in your relationship?: Yes
--- NOTE | 2021-06-16 11:52 | W.PM.PROGNOT ---
Date of Service Date of service: 06/16/21 Time of Service: 11:52 Assessment and Plan Assessment and plan (1) Dyskinesia of gallbladder: Status: Acute Assessment and plan: POD #3 s/p open yesenia pt is tolerating po's. Pain is well controlled and she feels stable to go home d/w pt wound care/activity/pain control/warning signs see d/c instructions/orders rx oxycodone F/u in office W/ Dr. Vance on Friday (2) Abdominal carcinomatosis: Status: Acute Subjective Subjective Interval history since last seen: Pt is doing well. no headaches. No CP or SOB. no productive cough. no dysuria. no leg pain or swelling. pt is tolerating po's. Pain is well controlled. She did ahve a BM. She is up walking around and doing IS. Exam Resp Auscultation: clear to auscultation bilaterally Cardio Rate: regular rate Rhythm: regular rhythm GI Other: PICOs over wound. sourrouding tissue is c/d/i. there is nodistention. good BS Extrem General: no clubbing, cyanosis or edema Objective Last Vital Signs Temp 36.5 C 06/16/21 08:10 Pulse 67 06/16/21 08:10 Resp 18 06/16/21 08:10 BP 148/87 H 06/16/21 08:10 Pulse Ox 97 06/16/21 08:10
--- NOTE | 2021-06-16 14:36 | PDOC.CMDIS ---
- If Service Date Differs Date of service: 06/16/21 Time of Service: 14:36 LACE Index Scoring Tool - Questions: Length of Stay (in days): 2 Acuity (Admit via E.D.?): No Comorbidities: Any Tumor E.D. Visits: 0 - Answers: Total Score: 4 Risk of Readmission: Low Risk Care Management Discharge Reason for Hospitalization: Biliary colic Discharge Plan: Discharge home via private vehicle with with no new services. Follow up with Dr. Vance and community providers as prescribed. Patient/Family Education Needs: Review discharge instructions, limitations and plan to follow up with Dr. Vance and community providers. Per discharge plan, patient should call Dr. Vance's office on Friday to schedule her follow up appointment. ask me three.
== END 2021-06-16 13:39 | disposition home or self-care (01) | DRG 330 ==
LOC: MS 15:32
PROVIDERS: Admitting Provider Surgery; PCP Internal Medicine; Visit Provider Surgery
PROC: 0FT44ZZ Resection of Gallbladder, Percutaneous Endoscopic Approach (ICD-10-PCS; CPT 47562; principal; 2021-06-13 09:30)
DX: C78.89 Secondary malignant neoplasm of other digestive organs (principal); C18.9 Malignant neoplasm of colon, unspecified; K91.71 Accidental puncture and laceration of a digestive system organ or structure during a digestive system procedure; K81.1 Chronic cholecystitis; Y83.8 Other surgical procedures as the cause of abnormal reaction of the patient, or of later complication, without mention of misadventure at the time of the procedure; Y92.234 Operating room of hospital as the place of occurrence of the external cause; K66.0 Peritoneal adhesions (postprocedural) (postinfection); Z98.0 Intestinal bypass and anastomosis status; E11.9 Type 2 diabetes mellitus without complications; E78.5 Hyperlipidemia, unspecified; I10 Essential (primary) hypertension
CPT/HCPCS: 47600; 44604; 36415; 80053; J1650; 85025; 88304; J0131; J0295; J1100; J1885; J2001; J2250; J2270; J2405; J3010; J3490; J8540

== ENCOUNTER 2021-06-29 13:19 | Inpatient (IN) | payer OTHER, SELFPAY ==
[2021-06-29] VITALS (21 sets, daily range): BP systolic 103–113; BP diastolic 62–76; PULSE 88–107; RESP 16–26; TEMP 36.8–37.5; O2SAT 91–96
--- NOTE | 2021-06-29 | DI.CT_ITS ---
Exam(s) CT ABDOMEN PELVIS WO EXAM: CT ABDOMEN PELVIS WO CLINICAL HISTORY: rule out bowel perf allow time for colonic transit. TECHNIQUE: Imaging Protocol: Axial computed tomography images with coronal and sagittal reformatted images were created and reviewed. COMPARISON: CT CT ABDOMEN PELVIS W from 06/29/[address] ABDOMEN PELVIS W from 06/29/2021 FINDINGS: Lack of IV contrast does limit evaluation of the abdominal and pelvic organs. Oral contrast was admi nistered. ABDOMEN: Lung Bases: There again seen small bilateral pleural effusions and bibasilar infiltrates. Liver: Normal density. No measurable mass. Gallbladder and biliary tract: Status post cholecystectomy. Pancreas: Normal density, no abnormal calcifications or inflammatory process. Spleen: Normal. Kidneys: Normal size, contour and axis.No radiodense stones or obstructive uropathy. No masses seen. Iodinated contrast is seen within both renal collecting system secondary to the patient's postcontras t CT scan earlier in the day. Adrenal glands: No mass is seen. Lymph nodes: Within normal limits. Abdominal Aorta: Abdominal portion non-dilated. Mild atherosclerosis. PELVIS: Bladder:Symmetric distention, no gross wall thickening. There is iodinated contrast seen within the u rinary bladder secondary to the patient's postcontrast CT scan earlier in the day. Bowel: The oral contrast has not advanced to the colon. There is oral contrast seen as far as the di stal small bowel. There is no extraluminal oral contrast seen at this time. There is a small hiatal hernia. There is no evidence of bowel obstruction. There again seen mildly thickened loops of smal l bowel which may reflect an enteritis. No evidence of appendicitis. Peritoneal cavity: There is again seen abdominal pelvic free fluid. There is again seen an air-fluid collection just deep to the anterior abdominal wall in the midline at the incision site. It is unch anged compared to the examination from earlier in the day. Reproductive organs: Within normal limits. Bones: Stable when compared with earlier in the day. Soft Tissues: Within normal limits. IMPRESSION: 1. There is a stable air-fluid collection in the anterior abdomen deep to the incision which may repr esent an abscess. 2. Nonspecific enteritis. 3. Abdominal pelvic ascites. No evidence of oral contrast extravasation. However the oral contrast has not advance beyond the small bowel. RADIATION DOSE DELIVERED: 852.5mGy.cm Total DLP DATA REPOSITORY: All CT scans at this facility are submitted to the National Radiology Data Registry (NRDR) Dose Index Registry (DIR) with the [employer] (ACR). RADIATION OPTIMIZATION: All CT scans at this facility use at least one of these dose optimization te chniques: automated exposure control; mA and/or kV adjustment per patient size (includes targeted exa ms where dose is matched to clinical indication); or iterative reconstruction.
--- NOTE | 2021-06-29 13:58 | DI.CT_ITS ---
Exam(s) CT ABDOMEN PELVIS W EXAM: CT ABDOMEN PELVIS W INDICATION: post op yesenia 1 week, abd incis. swelling, fever. COMPARISON: No exams were available for comparison TECHNIQUE: FINDINGS: CT examination of the abdomen and pelvis was performed with a bolus infusion of 100 cc of Omnipaque 3 50. Images obtained through the lung bases are unremarkable. The liver is unremarkable in appearance. The gallbladder has been surgically removed. The bile ducts are CT normal. Pancreas appears normal. Spleen is unremarkable in appearance. Adrenals appear normal. The kidneys are unremarkable with no evidence of hydronephrosis, nephrolithiasis, or renal mass.. Ur inary bladder unremarkable. Abdominal aorta is of normal diameter and no major vascular abnormality is seen. There is reportedly history of recent surgical procedure. At the anterior abdominal apparent incisio n site, there is a gas and fluid collection [place] anteriorly in or adjacent to anterior abdominal mus culature, this has the appearance and abscess. There is moderate abdominal ascites. There are numerous loops of small bowel with markedly thickened wall and irregular folds period duodenum and gastric antrum also appear to have thickened wall. Col on appears predominantly intact with perhaps some wall thickening the sigmoid. Findings as described are suggestive of an enteritis. No focal obstruction identified. No free intraperitoneal air. [employer] structures appear unremarkable for age. Anastomotic sutures noted at the cecum. IMPRESSION: 5 x 6 x 2 cm in diameter abscess in the anterior abdominal wall at the incision site. Diffuse or multi focal small bowel wall thickening suggestive of enteritis. Moderate abdominal ascit es. No evidence of bowel obstruction. RADIATION DOSE DELIVERED: 975.57mGy.cm Total DLP 975.57mGy.cm Total DLP CTDIvol RADIATION OPTIMIZATION: All CT scans at this facility use at least one of these dose optimization te chniques: automated exposure control; mA and/or kV adjustment per patient size (includes targeted exa ms where dose is matched to clinical indication); or iterative reconstruction.
--- NOTE | 2021-06-29 14:14 | ED.GENADUL_ITS ---
Discharge Plan Disposition Patient Disposition: [facility] INPATIENT Condition: Improving Discharge Details Clinical Impression: Post-operative complication Admit Date/Time: 06/29/21 16:27 Admit Provider: Shandra Maza Attending Provider: Shandra Maza Primary Care Provider: Candice Velazquez ED Provider: Mark Jones Discharge Data Discharge Date/Time-TO BE ENTERED AT DEPARTURE: 06/29/21 17:12 Medical Decision Making <Vinod Melton DO - Last Filed: 06/29/21 14:19> 56-year-old female with a past medical history of diabetes, hypertension, high cholesterol, colon cancer, with last chemotherapy received early to mid May, with a cholecystectomy that was performed on 06/13/2021 presents today for abdominal pain. During the procedure performed on 06/13 the patient had a concern that the bowel may have been nicked. She stayed for an extended period at the hospital (4 to 5 days) but had no complications. She was discharged home in good health. Over the last 3 or 4 days she has noticed continued and slightly worsening mild abdominal pain, as well as a growth/mass under the surgical incision site. Today while she was visiting her oncologist she was noted to be febrile, and having continued worsening pain. Oncology started her on Cipro Flagyl, for which she has taken a single dose of each medication. She then came to the ER for worsening symptoms. Patient denies any vomiting or diarrhea. No blood in her stool. She denies any urinary discomfort. She denies any chest pain or shortness of breath. She has received her Covid vaccine. Exam demonstrates notable tenderness throughout the abdomen, particularly around the incision site. Beneath the incision site there appears to be a deep structure that is feels to be a firm mass around 4 x 7 cm. No redness. Incision site itself looks excellent, with no redness or drainage. Concern at this time is for seroma, abscess or postoperative complication. We will get blood cultures, rehydrate, treat with pain medications, get a CT scan of the abdomen, monitor closely and reassess. <Mark Jones MD - Last Filed: 06/29/21 21:40> Patient signout from Dr. Melton. Please see his note regarding details of the initial presentation, exam and plan of care. Diagnostic studies reveal a white blood cell count of 12.5, lactic acid of 1.1. CT reveals both enteritis with small bowel wall thickening, ascites, dilatation; as well as a approximately 5 x 5 x 2 cm incisional fluid collection. Please see formal report.. Patient received oral antibiotics prior to ER visit. I discussed the case with on-call surgery, Dr. Ann who will admit the patient for further management. HPI <Vinod Melton DO - Last Filed: 06/29/21 14:19> General Date/Time Provider Initiated Documentation: 06/29/21 13:20 . HPI Narrative: 56-year-old female with a past medical history of diabetes, hypertension, high cholesterol, colon cancer, with last chemotherapy received early to mid May, with a cholecystectomy that was performed on 06/13/2021 presents today for abdominal pain. During the procedure performed on 06/13 the patient had a concern that the bowel may have been nicked. She stayed for an extended period at the hospital (4 to 5 days) but had no complications. She was discharged home in good health. Over the last 3 or 4 days she has noticed continued and slightly worsening mild abdominal pain, as well as a growth/mass under the surgical incision site. Today while she was visiting her oncologist she was noted to be febrile, and having continued worsening pain. Oncology started her on Cipro Flagyl, for which she has taken a single dose of each medication. She then came to the ER for worsening symptoms. Patient denies any vomiting or diarrhea. No blood in her stool. She denies any urinary discomfort. She denies any chest pain or shortness of breath. She has received her Covid vaccine. Related Data Home Medications Medication Instructions Recorded Confirmed glimepiride 1 mg PO DAILY tab-cap 12/21/12 06/29/21 pioglitazone [Actos] 45 mg PO DAILY tab-cap 12/21/12 06/29/21 Januvia 100 mg PO DAILY tab-cap 07/29/16 06/29/21 metformin 1,000 mg PO BID tab-cap 07/29/16 06/29/21 simvastatin 20 mg PO DAILY 08/07/20 06/29/21 acetaminophen 325 mg capsule 650 mg PO Q6H PRN cap 08/08/20 06/29/21 tramadol 50 mg tablet 50 mg PO Q6H PRN 08/08/20 06/29/21 pantoprazole [Protonix] 40 mg PO DAILY 08/09/20 06/29/21 bevacizumab 25 mg/mL intravenous IV 05/22/21 06/26/21 solution citalopram 20 mg tablet 20 mg PO HS 05/22/21 06/29/21 dexamethasone 4 mg tablet 4 mg PO BID 05/22/21 06/26/21 lactulose 10 gram/15 mL oral 10 g PO DAILY 05/22/21 06/29/21 solution lidocaine-prilocaine 2.5 %-2.5 % 1 applic TOPICAL ONCE 05/22/21 06/29/21 topical cream magnesium citrate 50 ml PO DAILY PRN ml 05/22/21 06/29/21 ondansetron HCl 8 mg tablet 8 mg PO Q8H 05/22/21 06/29/21 sennosides 8.6 mg capsule 8.6 mg PO DAILY 05/22/21 06/29/21 docusate sodium 100 mg capsule 100 mg PO DAILY 06/05/21 06/29/21 zolpidem 10 mg tablet 10 mg PO QHS PRN 06/05/21 06/29/21 oxycodone 5 mg PO Q6H PRN #14 tab 06/16/21 06/29/21 losartan 100 mg tablet 100 mg PO DAILY 06/19/21 06/29/21 cholestyramine (with sugar) 4 gram PO BID PRN ea 06/26/21 06/26/21 powder for susp in a packet ciprofloxacin HCl 500 mg PO DAILY 06/29/21 06/29/21 metronidazole 500 mg PO DAILY 06/29/21 06/29/21 Previous Rx's Medication Instructions Recorded oxycodone 5 mg PO Q6H PRN #14 tab 06/16/21 Allergies Allergy/AdvReac Type Severity Reaction Status Date / Time Penicillins Allergy Unknown Skin Rash Unverified 06/29/21 13:29 metoclopramide HCl AdvReac Severe Headache Unverified 06/29/21 13:29 [From Reglan] prochlorperazine edisylate AdvReac Severe Nausea Unverified 06/29/21 13:29 [From Compazine] prochlorperazine maleate AdvReac Severe Nausea Unverified 06/29/21 13:29 [From Compazine] d.h.e. AdvReac Severe Headache Uncoded 06/29/21 13:29 General Stated Complaint: Abd Prob SABINO: 3 Review of Systems <Vinod Melton DO - Last Filed: 06/29/21 14:19> All systems reviewed & are unremarkable except as noted in HPI and below PFSH <Vinod Melton DO - Last Filed: 06/29/21 14:19> Medical History Colon cancer Diabetes mellitus, type 2 Dyskinesia of gallbladder Hyperlipidemia Hypertension Surgical History section (~1985) Colonoscopy - MAC (08/14/16) History of appendectomy History of cholecystectomy (~06/13/21) Hx of hysterectomy 07/15/20 Ligation of fallopian tube 1990 S/P partial colectomy 2019- [place] Family History Other Diabetes Heart disease Personal history of malignant neoplasm Social History Smoking/Tobacco Use Status: Never Smoking risk assessment performed?: Yes Alcohol Intake: current Alcohol Intake frequency: holidays/special occasions only Drug use: Never Substance use type: does not use Current gender identity: female Do you feel safe at home: Yes Do you feel safe in your relationship?: Yes Exam <Vinod Melton DO - Last Filed: 06/29/21 14:19> Narrative Exam Narrative: 1.Const: Well-nourished, Well-developed, appearing stated age 2.Eyes: PERRL, no conjunctival injection, and symmetrical lids. 3.ENT: Atraumatic external nose and ears. Moist MM. Neck: Symmetric, trachea midline, No thyromegaly. 4.CVS: +S1/S2, No murmurs or gallops. Peripheral pulses 2+ and equal in all extremities. Brisk capillary refill in all extremities. 5.RESP: Unlabored respiratory effort. Clear to auscultation bilaterally. No wheezes rales or rhonchi 6.GI: Notable abdominal tenderness throughout with mild voluntary guarding. Notable tenderness along the incision site, as well as a firm mass that appears to be palpable below the incision site. Dimensions appear to be roughly 4 cm x 7 cm. No redness no. No drainage from the incision site. The incision itself appears clean dry and intact. 7.MSK: Normocephalic/Atraumatic, Extremities w/o deformity or ttp No cyanosis or clubbing, Normal movement of all extremities 8.Skin: Warm, Dry. No rashes or lesions. 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 Sensation grossly intact, no focal neurologic deficits. 10.Psych: (AAO) x3. Appropriate mood and affect Course <Vinod Melton DO - Last Filed: 06/29/21 14:19> Vital Signs Vital signs: Vital Signs Temperature 37.1 C 06/29/21 13:24 Pulse 107 H 06/29/21 13:24 Respiratory Rate 18 06/29/21 13:24 Blood Pressure 113/76 06/29/21 13:24 Pulse Oximetry 93 06/29/21 13:24 Temperature 37.1 C 06/29/21 13:24 Temperature Source Temporal Artery Scan 06/29/21 13:24 Pulse 107 H 06/29/21 13:24 Respiratory Rate 18 06/29/21 13:24 Respiratory Effort Non-Labored 06/29/21 13:36 Blood Pressure 113/76 06/29/21 13:24 Blood Pressure Position Sitting 06/29/21 13:24 Pulse Oximetry 93 06/29/21 13:24 Oxygen Delivery Method Room Air 06/29/21 13:24 Oxygen Flow Rate 0 06/29/21 13:24 Lab/Test Results Lab/Test Results: 06/29/21 13:21 Blood Blood Culture - Pending 06/29/21 13:21 Blood Blood Culture - Pending Sign Out <Vinod Melton DO - Last Filed: 06/29/21 14:19> Sign Out Data: Sign Out Comment: Follow-up on CT scan and labs for acute abdominal process Last updated by Vinod Melton DO at 06/29/21 14:54
[2021-06-29 14:32] LABS: Abs Immature Grans 0.16 10^3/uL (0.0-0.06); Absolute Basophil Count 0.05 10^3/uL (0.0-0.2); Absolute Lymphocyte Count 0.94 10^3/uL (1.2-3.4); Absolute Monocyte Count 0.89 10^3/uL (0.1-0.8); Basophils % 0.4; Eosinophils % 0.2; HCT 29.7 % (36.0-46.0); HGB 9.7 g/dL (11.2-15.7); Immature Grans % 1.3; Lymphocytes % 7.5; MCH 29.6 pg (27.0-33.0); MCHC 32.7 % (32.0-36.0); MCV 90.5 fL (80-95); Monocytes % 7.1; Neutrophils % 83.5; Nucleated RBC 0 %; Platelet Count 336 10^3/uL (130-400); RBC 3.28 10^6/uL (3.93-5.22); RDW 14.1 % (11.7-14.6); RDW-SD 47.1 fL; WBC 12.58 10^3/uL (4.4-10.8)
[2021-06-29 14:33] LABS: Lactate 1.1 mmol/L (0.6-1.4)
[2021-06-29 14:34] LABS: Absolute Eosinophil Count 0.03 10^3/uL (0.0-0.7)
[2021-06-29 14:37] LABS: Source Nasal/Nares
[2021-06-29] MEDS: ACETAMINOPHEN 1,000 MG/100 ML BTL 400 MG IVPB ×2 (14:40→23:17)
[2021-06-29] MEDS: Normal Saline 500 ML IV (14:41)
[2021-06-29] MEDS: Normal Saline Flush 10 ML SYR IVP (15:27)
[2021-06-29] MEDS: Normal Saline - Diluent 50 ML VIAL IV (15:27)
[2021-06-29] MEDS: Omnipaque 350 MG/ML 100 ML BTL IJ (15:28)
[2021-06-29 15:29] LABS: COVID-19 PCR Negative (Negative)
[2021-06-29 15:45] LABS: Albumin 2.4 g/dL (3.4-5.0); Alkaline Phosphatase 257 U/L (46-116); BUN 15 mg/dL (7-18); Bilirubin, Total 1.3 mg/dL (0.2-1.0); CREATININE 0.6 mg/dL (0.55-1.02); Calcium 9.2 mg/dL (8.5-10.1); Glucose 171 mg/dL (74-106); Potassium 3.5 mmol/L (3.5-5.1); Sodium 134 mmol/L (136-145); Total Protein 7.1 g/dL (6.4-8.2)
[2021-06-29 15:46] LABS: ALT 31 U/L (14-59); AST 16 U/L (15-37); Anion Gap 5.8 mmol/L (3-11); CO2 29.2 mmol/L (21.0-32.0); Chloride 99 mmol/L (98-107); Lipase 55 U/L (73-393)
--- NOTE | 2021-06-29 17:14 | HPE_ITS ---
Date of service: 06/29/21 Time of Service: 17:14 Assessment and Plan Assessment and plan (1) Post-operative complication: Status: Acute Assessment and plan: -CT A/P done in ER without evidence of acute perforation although there is a small account of ascites and free air present -Normal lactic acid and liver enzyme levels are reassuring; bile leak vs enteric perforation less likely; continue empiric abx -Repeat CT A/P with PO contrast to better assess etiology of fluid -Discussed differentials at length with patient and her and all questions answered to their satisfaction -Hospitalist consult requested, recommendations for medical management appreciated -PT consult and ambulation with assistance encouraged -NPO with pepcid for GI ppx -Lovenox for DVT ppx -Nutrition consult ordered for poor PO intake and hypoalbuminemia -Repeat CT with PO contrast discussed with Radiologist Dr. Mark Bran and relayed to primary RN to inform patient -KUB ordered for the AM to ensure there is no presence of intraluminal contrast extravasation Qualifiers: Surgical complication system/body Area: digestive system Surgical complication type: unspecified Procedure type: digestive system Qualified Code(s): K91.89 - Other postprocedural complications and disorders of digestive system (2) Port-A-Cath in place: Status: Acute (3) Abdominal carcinomatosis: Status: Acute History of Present Illness Narrative: 56 year old female with metastatic colon cancer complicated by biliary dyskinesia who recently underwent open cholecystectomy on 06/13 complained of subjective fevers and anorexia as reported to her PCP today. I was called by patient's PCP and told she was peritoneal and recently post operative from open cholecystectomy with an inadvertent but primarily repaired transverse colotomy upon attempted complex laparoscopic entry. PCP reported desire to obtain abdominal x-ray to which I advised referral to ER for complete evaluation of detailed labs and CT scan due to complex history. Patient underwent basic laboratory studies revealing a mild leukocytosis of 12k and normal LFT's lowering my suspicion for bile leak. Her lactate was also normal which narrowed my differential for persistent colonic perforation. Post operative abscess versus colonic injury remained at the apex of my differential, as CT scan was not done with PO contrast in the ER. Patient has had chemotherapy on hold pending surgical therapy for known biliary dyskinesia. Until 2-3 days ago she was in her usual state of health including eating,drinking and stooling normally.She reports an intermittent and mobile lump within her midline abdominal incision. On my exam today, there are no external signs of infection such as erythema or drainage from abdominal wound and no signs or symptoms of incisional hernia formation. Of note, she appears clinically well. Review of Systems All systems reviewed & are unremarkable except as noted in HPI and below PFSH Medical History Colon cancer Diabetes mellitus, type 2 Dyskinesia of gallbladder Hyperlipidemia Hypertension Surgical History section (~1985) Colonoscopy - MAC (08/14/16) History of appendectomy History of cholecystectomy (~06/13/21) Hx of hysterectomy 07/15/20 Ligation of fallopian tube 1990 S/P partial colectomy 2019- [place] Family History Other Diabetes Heart disease Personal history of malignant neoplasm Social History Smoking/Tobacco Use Status: Never Smoking risk assessment performed?: Yes Alcohol Intake: current Alcohol Intake frequency: holidays/special occasions only Drug use: Never Substance use type: does not use Current gender identity: female Do you feel safe at home: Yes Do you feel safe in your relationship?: Yes Meds Allergies and Home Medications Allergies Allergy/AdvReac Type Severity Reaction Status Date / Time Penicillins Allergy Unknown Skin Rash Unverified 06/29/21 13:29 metoclopramide HCl AdvReac Severe Headache Unverified 06/29/21 13:29 [From Reglan] prochlorperazine edisylate AdvReac Severe Nausea Unverified 06/29/21 13:29 [From Compazine] prochlorperazine maleate AdvReac Severe Nausea Unverified 06/29/21 13:29 [From Compazine] d.h.e. AdvReac Severe Headache Uncoded 06/29/21 13:29 Home Medications Medication Instructions Recorded Confirmed Type glimepiride 1 mg PO DAILY tab-cap 12/21/12 06/29/21 History pioglitazone [Actos] 45 mg PO DAILY tab-cap 12/21/12 06/29/21 History Januvia 100 mg PO DAILY tab-cap 07/29/16 06/29/21 History metformin 1,000 mg PO BID tab-cap 07/29/16 06/29/21 History simvastatin 20 mg PO DAILY 08/07/20 06/29/21 History acetaminophen 325 mg capsule 650 mg PO Q6H PRN cap 08/08/20 06/29/21 History tramadol 50 mg tablet 50 mg PO Q6H PRN 08/08/20 06/29/21 History pantoprazole [Protonix] 40 mg PO DAILY 08/09/20 06/29/21 History bevacizumab 25 mg/mL intravenous IV 05/22/21 06/26/21 History solution citalopram 20 mg tablet 20 mg PO HS 05/22/21 06/29/21 History dexamethasone 4 mg tablet 4 mg PO BID 05/22/21 06/26/21 History lactulose 10 gram/15 mL oral 10 g PO DAILY 05/22/21 06/29/21 History solution lidocaine-prilocaine 2.5 %-2.5 % 1 applic TOPICAL ONCE 05/22/21 06/29/21 History topical cream magnesium citrate 50 ml PO DAILY PRN ml 05/22/21 06/29/21 History ondansetron HCl 8 mg tablet 8 mg PO Q8H 05/22/21 06/29/21 History sennosides 8.6 mg capsule 8.6 mg PO DAILY 05/22/21 06/29/21 History docusate sodium 100 mg capsule 100 mg PO DAILY 06/05/21 06/29/21 History zolpidem 10 mg tablet 10 mg PO QHS PRN 06/05/21 06/29/21 History oxycodone 5 mg PO Q6H PRN #14 tab 06/16/21 06/29/21 Rx losartan 100 mg tablet 100 mg PO DAILY 06/19/21 06/29/21 History cholestyramine (with sugar) 4 gram PO BID PRN ea 06/26/21 06/26/21 History powder for susp in a packet ciprofloxacin HCl 500 mg PO DAILY 06/29/21 06/29/21 History metronidazole 500 mg PO DAILY 06/29/21 06/29/21 History Exam Const General: cooperative, healthy appearing, comfortable, no acute distress, well developed and well groomed Resp Effort & Inspection: normal respiratory effort, no audible wheezes, no cough, not labored and no respiratory distress Cardio Palpation: normal PMI Rate: regular rate GI Inspection: normal to inspection, no abdominal wall ecchymosis, non-distended, incision (intact and healing appropriately ), no visible herniation and no visible pulsation Palpation: soft, not firm, no guarding and tender (very mild right lower terry- inciscional area) Percussion: normal to percussion Results Labs Result diagrams: 06/29/21 14:24 06/29/21 14:24 Labs: Laboratory Results - last 24 hr 06/29/21 06/29/21 06/29/21 14:24 14:24 14:24 WBC 12.58 H RBC 3.28 L Hgb 9.7 L Hct 29.7 L MCV 90.5 MCH 29.6 MCHC 32.7 RDW 14.1 Plt Count 336 D MPV 9.0 Immature Gran % 1.3 Neutrophils % 83.5 Lymphocytes % 7.5 Monocytes % 7.1 Eosinophils % 0.2 Basophils % 0.4 Nucleated RBC % 0 Absolute Neutrophils 10.50 H Absolute Lymphocytes 0.94 L Absolute Monocytes 0.89 H Absolute Eosinophils 0.03 Absolute Basophils 0.05 VBG Lactate 1.1 Sodium 134 L Potassium 3.5 Chloride 99 Carbon Dioxide 29.2 Anion Gap 5.8 BUN 15 Creatinine 0.6 Estimated GFR/1.73 m2 >= 60.00 Glucose 171 H Calcium 9.2 Total Bilirubin 1.3 H AST 16 ALT 31 Alkaline Phosphatase 257 H Total Protein 7.1 Albumin 2.4 L Lipase 55 COVID-19 Source SARS-CoV-2 (PCR) 06/29/21 14:28 WBC RBC Hgb Hct MCV MCH MCHC RDW Plt Count MPV Immature Gran % Neutrophils % Lymphocytes % Monocytes % Eosinophils % Basophils % Nucleated RBC % Absolute Neutrophils Absolute Lymphocytes Absolute Monocytes Absolute Eosinophils Absolute Basophils VBG Lactate Sodium Potassium Chloride Carbon Dioxide Anion Gap BUN Creatinine Estimated GFR/1.73 m2 Glucose Calcium Total Bilirubin AST ALT Alkaline Phosphatase Total Protein Albumin Lipase COVID-19 Source Nasal/Nares SARS-CoV-2 (PCR) Negative Last Vital Signs Temp 98.8 F 06/29/21 13:24 Pulse 89 06/29/21 16:16 Resp 20 06/29/21 16:20 BP 111/63 06/29/21 16:16 Pulse Ox 96 06/29/21 16:20
[2021-06-29] MEDS: MEROPENEM 1 GM in Normal Saline 100 ML IVPB (19:54)
[2021-06-29] MEDS: Enoxaparin 40 MG/0.4 ML SYR SC (19:55)
--- NOTE | 2021-06-29 20:28 | DI.VRAD_ITS ---
PROCEDURE INFORMATION: Exam: CT Abdomen And Pelvis Without Contrast Exam date and time: 06/29/2021 4:53 PM Age: 56 years old Clinical indication: Other: Rule out bowel perf allow time for colonic transit TECHNIQUE: Imaging protocol: Computed tomography of the abdomen and pelvis without contrast. Total images: 1227 Radiation optimization: All CT scans at this facility use at least one of these dose optimization techniques: automated exposure control; mA and/or kV adjustment per patient size (includes targeted exams where dose is matched to clinical indication); or iterative reconstruction. COMPARISON: CT ABDOMEN PELVIS W 06/29/2021 3:25 PM FINDINGS: Lungs: There is compressive atelectasis at the left lung base. There is discoid atelectasis in the lower lungs. Pleural spaces: There is pleural thickening at the right lung base. There is a mild left pleural effusion. Liver: No gross mass. Gallbladder and bile ducts: Status post cholecystectomy. Pancreas: No mass or peripancreatic edema. Spleen: No splenomegaly. Adrenal glands: No adrenal nodule. Kidneys and ureters: No hydronephrosis. No renal or ureteral calculi. Stomach and bowel: There is a moderate amount of solid stool within the large bowel. There is mild dilatation the transverse colon. No definite colonic wall thickening. Oral contrast is seen within the stomach and several proximal and mid abdominal small bowel loops. There are several mildly thick walled small bowel loops within the left mid abdomen. No significant small bowel dilatation. Appendix: No evidence of appendicitis. Intraperitoneal space: Again noted is a [id number] amount of abdominal ascites. There is an extraluminal air-fluid collection in the anterior aspect of the peritoneal cavity on left side at level of a surgical scar. This appears similar to the prior study and measures approximately 4 x 5.8 cm in size. Vasculature: No abdominal aortic aneurysm. Lymph nodes: No significant adenopathy. Urinary bladder: No bladder stone. No definite bladder wall thickening. Reproductive: Unremarkable as visualized. Bones/joints: No significant bony or joint space abnormality. Soft tissues: Extra-abdominal soft tissues are unremarkable. IMPRESSION: 1. There is a persistent extraluminal collection of air which may represent a contained localized perforation. It is adjacent to mildly distended transverse colon. 2. Nonspecific enteritis. 3. Again noted is ascites which could be seen in the setting of perforation or biliary leak although patient does have a history of carcinomatosis as well. 4. THIS REPORT CONTAINS FINDINGS THAT MAY BE CRITICAL TO PATIENT CARE. The findings, potential significance and etiology were verbally communicated via telephone conference with Shandra Maza at 8:26 PM EST on 06/29/2021. The findings were acknowledged and understood. Dictated and Authenticated by: Mark Bran MD. Ordering:UNIQUE Devi MD
[2021-06-29] MEDS: FAMOTIDINE 20 MG/50 ML BAG 200 MG IVPB (21:02)
[2021-06-29] MEDS: Lactated Ringers 1,000 ML 100 ML IV (22:05)
[2021-06-30] MEDS: MEROPENEM 1 GM in Normal Saline 100 ML IVPB ×3 (01:28→18:12)
[2021-06-30] MEDS: ACETAMINOPHEN 1,000 MG/100 ML BTL 400 MG IVPB ×3 (05:17→17:22)
[2021-06-30] MEDS: MORPHine 2 MG/ML SYR IVP ×3 (08:01→18:13)
[2021-06-30 08:15] LABS: HCT 30.1 % (36.0-46.0); HGB 9.6 g/dL (11.2-15.7); MCHC 31.9 % (32.0-36.0); MCV 90.9 fL (80-95); RBC 3.31 10^6/uL (3.93-5.22); RDW-SD 47.8 fL; WBC 9.78 10^3/uL (4.4-10.8)
[2021-06-30 08:16] LABS: Abs Immature Grans 0.11 10^3/uL (0.0-0.06); Absolute Basophil Count 0.05 10^3/uL (0.0-0.2); Absolute Eosinophil Count 0.02 10^3/uL (0.0-0.7); Absolute Lymphocyte Count 0.79 10^3/uL (1.2-3.4); Absolute Monocyte Count 0.78 10^3/uL (0.1-0.8); Absolute Neutrophil Count 8.03 10^3/uL (1.2-6.7); Basophils % 0.5; Eosinophils % 0.2; Immature Grans % 1.1; Lymphocytes % 8.1; Neutrophils % 82.1; Platelet Count 372 10^3/uL (130-400); RDW 14.3 % (11.7-14.6)
[2021-06-30 08:24] VITALS: BP 132/79; PULSE 93; RESP 17; TEMP 36.9; O2SAT 95
[2021-06-30 08:35] LABS: INR 1.1 (0.9-1.1); Prothrombin Time 10.8 sec (9.3-11.0)
[2021-06-30 08:42] LABS: BUN 8 mg/dL (7-18); Calcium 8.7 mg/dL (8.5-10.1); Glucose 147 mg/dL (74-106)
[2021-06-30 08:43] LABS: ALT 31 U/L (14-59); AST 23 U/L (15-37); Albumin 2.2 g/dL (3.4-5.0); Alkaline Phosphatase 285 U/L (46-116); Anion Gap 6.8 mmol/L (3-11); Bilirubin, Total 1.5 mg/dL (0.2-1.0); CO2 30.2 mmol/L (21.0-32.0); CREATININE 0.6 mg/dL (0.55-1.02); Chloride 99 mmol/L (98-107); Potassium 3.5 mmol/L (3.5-5.1); Sodium 136 mmol/L (136-145); TSH (W/Ref FT4) 2.47 uIU/mL (0.36-3.74); Total Protein 6.9 g/dL (6.4-8.2)
--- NOTE | 2021-06-30 08:43 | PDOC.CMIN ---
- If Service Date Differs Date of service: 06/30/21 Time of Service: 08:43 Care Management Initial Assess REASON FOR HOSPITALIZATION:: pos-op complications PAST MEDICAL HISTORY/PAST SURGICAL HISTORY:: Medical History . Colon cancer. Diabetes mellitus, type 2. Dyskinesia of gallbladder. Hyperlipidemia. Hypertension. Surgical History . section (~1985). Colonoscopy - MAC (08/14/16). History of appendectomy. History of cholecystectomy (~06/13/21). Hx of hysterectomy. 07/15/20. Ligation of fallopian tube. 1990. S/P partial colectomy. 2019[place] PREVIOUS FUNCTIONAL STATUS/SOCIAL/FAMILY SUPPORTS:: Sallie lives in [place], [place] with her Torres. She has 3 children who live in various parts of the country. 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 She is independent at baseline and receives no community services. CURRENT FUNCTIONAL STATUS:: Sallie was sitting up in bed visiting with her when CM met with her. She was pleasant and in good spirits. She stated that she was having a little bit of pain at the moment but that it wasn't too bad. Sallie admitted that she was not clear what the plan would be. She shared that Dr. Maza told her she might need to operate on her here or that she might be transferred to another facility. Later in the day Dr. Maza returned to inform her that she would be sent to [facility] [place] for a down and back abscess drainage procedure in . She is currently NPO. ADVANCE DIRECTIVES:: none on file Has patient been provided with info about the portal/API?: Yes Did the patient sign up for the portal?: No CODE STATUS:: Full Code INSURANCE COVERAGE / FINANCIAL ISSUES:: [facility] CURRENT HOME/COMMUNITY SERVICES/EQUIPMENT:: none PRIMARY CARE PHYSICIAN:: Candice Velazquez POTENTIAL DISCHARGE NEEDS:: Follow up with surgeon and plan of care, wound care PATIENT/FAMILY EDUCATION NEEDS:: Review of discharge instructions, limitations, activity, medicatrions, follow up plan, Ask Me Three TRANSPORTATION:: via private vehicle with family PLAN:: Sallie will be transported to [facility] on Friday for a down and back abscess drainage procedure in . When medically ready she will be discharged home, possibly with new home health services. She will follow up with her community providers and plan of care and transport with her . will continue to support Sallie and assess for discharge planning needs. Readmission - Within the Past 30 Days Yes or No: Y - Date of First Admission Date of 1st Admission: 06/15/21 - Date of this Admission Date of Admission: 06/29/21 This admission was: Through ED - Office Visit Since 1st Admission Have you seen your PCP in the office since discharge?: Yes Had an appointment Been Scheduled?: Yes - I. Interview patient and/or Family Difficulty reaching your doctor or getting an office appt?: No Have you had trouble purchasing/ or taking medication?: No Have you had trouble with getting meals at home?: No Did you feel ready for discharge when you left the last time: Yes Did you call your physician beore you came to the ED?: Yes (seen in office. PCP called surgeon) Did your physician tell you to come in?: Yes - ED visits How many ED visits in the past 12 months: 1 - Assessment for Readmission Summary of readmission circumstances, based upon interviews: Sallie has metastatic colon cancer. She has had surgery complicated by an intra-abdominal abscess.
[2021-06-30 08:51] LABS: Total Protein 6.9 g/dL (6.4-8.2)
[2021-06-30 08:52] LABS: ALT 32 U/L (14-59); AST 20 U/L (15-37); Albumin 2.2 g/dL (3.4-5.0); Alkaline Phosphatase 285 U/L (46-116); Bilirubin, Direct 0.9 mg/dL (0.0-0.2); Bilirubin, Total 1.5 mg/dL (0.2-1.0)
--- NOTE | 2021-06-30 09:50 | DI.RAD_ITS ---
Exam(s) XR ABDOMEN FLAT UPRIGHT EXAM: 2D digital imaging was performed. CLINICAL HISTORY: r/o colon perforation. COMPARISON: No exams were available for comparison TECHNIQUE: Supine and uprightSupine and Lateral views of the abdomen was performed. FINDINGS: LUNG BASES: Bilateral basilar infiltrates and small pleural effusions. BOWEL GAS PATTERN: Nondistended. The leading edge of the oral contrast is seen in the proximal transv erse colon. FREE AIR: None. CALCIFICATIONS: No radiopaque calcifications. OSSEOUS STRUCTURES: Normal for age. OTHER FINDINGS: Surgical clips in the right upper quadrant are consistent with the patient's known ch olecystectomy. IMPRESSION: 1. No evidence of bowel obstruction or free air. 2. Small bilateral pleural effusions and bibasilar infiltrates. DATA REPOSITORY: RADIATION DOSE DELIVERED:
--- NOTE | 2021-06-30 10:10 | DI.VRAD_ITS ---
PROCEDURE INFORMATION: Exam: XR Abdomen Exam date and time: 06/30/2021 12:00 AM Age: 56 years old Clinical indication: Other: R/O colon perforation; Prior surgery; Surgery date: <1 month; Surgery type: Post op open yesenia w/ transverse colon repair TECHNIQUE: Imaging protocol: XR of the abdomen. Views: 2 Views. Upright and supine views. COMPARISON: CT ABDOMEN PELVIS WO 06/29/2021 7:00 PM FINDINGS: Heart/Mediastinum: Cardiac silhouette incompletely imaged but appears at least mildly enlarged. Pleural space: Suspected bilateral pleural effusions. Gastrointestinal tract: Contrast is seen opacifying portions of the bowel. Nonobstructive bowel gas pattern. Intraperitoneal space: No free air. Organs: Presumed cholecystectomy clips. Bones/joints: No acute displaced fracture. Soft tissues: Unremarkable soft tissues. IMPRESSION: Suspected small bilateral pleural effusions and mild cardiac silhouette enlargement without other acute findings. Dictated and Authenticated by: Osman Casillas MD. Ordering:UNIQUE Devi MD
[2021-06-30 10:15] VITALS: O2SAT 95
--- NOTE | 2021-06-30 10:24 | IN_ITS ---
Date of service: 06/30/21 Time of Service: 08:45 PT Notes Visit Reasons: Post Operative Problems Inpatient Physical Therapy Evaluation Date: June Referring Doctor: Shandra Maza PT Orders: PT CONSULT: Exacerbation of chronic condition Precautions: Standard Patient Profile/Admitting Diagnosis: Sallie is a 56 year old female with a past medical history of diabetes, hypertension, high cholesterol, colon cancer, with last chemotherapy received early to mid May, with a cholecystectomy that was performed on 06/13/2021 presents today for abdominal pain. During the procedure performed on 06/13 the patient had a concern that the bowel may have been nicked. She stayed for an extended period at the hospital (4 to 5 days) but had no complications. She was discharged home in good health. Over the last few da ys she noticed continued and slightly worsening mild abdominal pain, as well as a growth/mass under the surgical incision site. While she was visiting her oncologist she was noted to be febrile, and having continued worsening pain. She then came to the ER for worsening symptoms and further evaluation. PMHX: Colon cancer Diabetes mellitus, type 2 Dyskinesia of gallbladder Hyperlipidemia Hypertension Surgical History section (~1985) Colonoscopy - MAC (08/14/16) History of appendectomy History of cholecystectomy (~06/13/21) Hx of hysterectomy 07/15/20 Ligation of fallopian tube 1990 S/P partial colectomy 2019- [place] Social History/Home Situation: Sallie lives in [place], [place] with her Torres. She has 3 children who live in various parts of the country. She is independent at baseline and receives no community services. Current Functional Limitations: abdominal pain with transfers and bed mobility Equipment Owned/DME: None Subjective: Sallie notes that she is comfortable while lying still reporting 2/10 at rest in bed. She notes with any movement her pain increased to a 5-6/10 on VAS. She notes that she had gotten pretty good at performing transfers with less overall difficulty due to her surgery being over a couple weeks out. Objective: General Observation: IV left UE Mental Status: Alert and oriented x3 Pain: As above ROM: Right Upper Extremity: Demonstrates WNL AROM R UE Left Upper Extremity: Demonstrate WNL AROM L UE Right Lower Extremity: Demonstrates WFL R LE ROM Left Lower Extremity: Demonstrates WFL L LE ROM Strength: Right Upper Extremity: Demonstrates grossly 4+-5/5 R UE Left Upper Extremity: Demonstrates grossly 4+-5/5 L UE Right Lower Extremity: Hip flexion 4/5, knee flexion 5/5, knee extension 5/5, DF 5/5 Left Lower Extremity: Hip flexion 4/5, knee flexion 5/5, knee extension 5/5, DF 5/5 Sensation: Intact to light touch. Declines parasthesias. Bed Mobility/Transfers: Rolling: Independent Supine-sit: HOB 45 degrees Supervision Sit-supine: SBA Sit-stand: supervision Stand-sit: supervision Gait: Able to ambulate from bed to hallway 25ftx2 with SBA full weightbearing without assistive device Balance: Static Sitting: Normal Dynamic Sitting: Normal Static Standing: Good Dynamic Standing: Good Special Tests: Mobility Limitations Standardized Measure [facility] AM-PAC 6 clicks Basic Mobility Inpatient Short Form: Raw Score: 22 CMS Score: 21% Informed Consent/Education: Patient instructed in purpose of PT consult and plan of care. Assessment: Patient is a 56 year old female referred to physical therapy services with the diagnosis of postop complication status post open cholecystectomy. Patient presents with clinical signs and symptoms consistent with diagnosis, as demonstrated by the following impairment level findings: decreased abdominal strength s/p surgery, limited functional endurance. Impairments are contributing to the following functional limitations: decreased ADL tolerance, abdominal pain with functional mobility Patient is assessed as a Moderate complexity based on the following: History: As above Examination: As Above Presentation: Evolving Decision Making: Moderate Goals: Goals X1 week 1. Supine-Sit independent 2. Sit-Supine independent 3. Sit-Stand independent 4. Stand-Sit independent 5. Bed-Chair independent 6. Chair-Bed independent 7. Gait independent 100 ft or greater Plan of Care/Treatment Plan: 1-2x/day, 7 days/week x 1 week. Plan of care has been reviewed with the SPORTS CARTOONIST providing the service under Physical Therapy direction. Initiate Physical Therapy intervention for strengthening, bed mobility, transfers, gait, stairs, balance training, use of assistive device. DISCHARGE RECOMMENDATIONS: Home with no services TREATMENT CODE/TIME: 72777 IE 25 minutes 8:45 am [facility] Disclaimer: This note was created using Diveboard voice recognition software. It was reviewed for major content. However, there may be multiple small discrepancies and errors due to the voice recognition aspects of the software.
--- NOTE | 2021-06-30 11:05 | PGE_ITS ---
Date of Service Date of service: 06/30/21 Time of Service: 11:05 Assessment and Plan Assessment and plan (1) Post-operative complication: Status: Acute Assessment and plan: -Discussed with [facility] interventional radiology Dr. Golden who agrees to CT guided drain/aspiration on Friday, no bed availability and unable to do down and back procedures on weekends -Clinically stable, plan was discussed at length with the patient and her who understand and agree, ideal to avoid another exploratory surgery if possible given co-morbidities and active chemotherapy impeding post operative healing. If patient fails this least invasive measure or shows signs of clinical worsening she will require operative intervention. 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 truck terminal manager insulin use status Diabetes mellitus complication status: without complication Qualified Code(s): E11.9 - Type 2 diabetes mellitus without complications Subjective Subjective Patient reports: no new complaints and feels better; denies nausea and vomiting Exam Const General: cooperative, healthy appearing, comfortable and no acute distress Resp Effort & Inspection: normal respiratory effort, no audible wheezes, no cough and no respiratory distress Cardio Rate: regular rate Rhythm: regular rhythm GI Inspection: incision (intact, small buldge adjacent to incision appears slightly larger today) Palpation: soft, not firm, no guarding and tender (mild terry-incisional, non- peritoneal) Percussion: normal to percussion Skin General skin exam: no ecchymosis, no erythema and no induration Neuro General: patient alert, patient awake and patient oriented x3 Cognition: normal cognition Speech: speech normal Objective Last Vital Signs Temp 98.4 F 06/30/21 08:24 Pulse 93 H 06/30/21 08:24 Resp 17 06/30/21 08:24 BP 132/79 06/30/21 08:24 Pulse Ox 95 06/30/21 10:15 Laboratory Results - last 24 hr 06/29/21 06/29/21 06/29/21 14:24 14:24 14:24 WBC 12.58 H RBC 3.28 L Hgb 9.7 L Hct 29.7 L MCV 90.5 MCH 29.6 MCHC 32.7 RDW 14.1 Plt Count 336 D MPV 9.0 Immature Gran % 1.3 Neutrophils % 83.5 Lymphocytes % 7.5 Monocytes % 7.1 Eosinophils % 0.2 Basophils % 0.4 Nucleated RBC % 0 Absolute Neutrophils 10.50 H Absolute Lymphocytes 0.94 L Absolute Monocytes 0.89 H Absolute Eosinophils 0.03 Absolute Basophils 0.05 PT INR APTT VBG Lactate 1.1 Sodium 134 L Potassium 3.5 Chloride 99 Carbon Dioxide 29.2 Anion Gap 5.8 BUN 15 Creatinine 0.6 Estimated GFR/1.73 m2 >= 60.00 Glucose 171 H Calcium 9.2 Total Bilirubin 1.3 H Conjugated Bilirubin AST 16 ALT 31 Alkaline Phosphatase 257 H Total Protein 7.1 Albumin 2.4 L Lipase 55 TSH COVID-19 Source SARS-CoV-2 (PCR) 06/29/21 06/30/21 06/30/21 14:28 08:05 08:05 WBC RBC Hgb Hct MCV MCH MCHC RDW Plt Count MPV Immature Gran % Neutrophils % Lymphocytes % Monocytes % Eosinophils % Basophils % Nucleated RBC % Absolute Neutrophils Absolute Lymphocytes Absolute Monocytes Absolute Eosinophils Absolute Basophils PT 10.8 INR 1.1 APTT 30.0 H VBG Lactate Sodium 136 Potassium 3.5 Chloride 99 Carbon Dioxide 30.2 Anion Gap 6.8 BUN 8 D Creatinine 0.6 Estimated GFR/1.73 m2 >= 60.00 Glucose 147 H Calcium 8.7 Total Bilirubin 1.5 H Conjugated Bilirubin AST 23 ALT 31 Alkaline Phosphatase 285 H Total Protein 6.9 Albumin 2.2 L Lipase TSH 2.47 COVID-19 Source Nasal/Nares SARS-CoV-2 (PCR) Negative 06/30/21 06/30/21 08:05 08:05 WBC 9.78 RBC 3.31 L Hgb 9.6 L Hct 30.1 L MCV 90.9 MCH 29.0 MCHC 31.9 L RDW 14.3 Plt Count 372 MPV 9.0 Immature Gran % 1.1 Neutrophils % 82.1 Lymphocytes % 8.1 Monocytes % 8.0 Eosinophils % 0.2 Basophils % 0.5 Nucleated RBC % Absolute Neutrophils 8.03 H Absolute Lymphocytes 0.79 L Absolute Monocytes 0.78 Absolute Eosinophils 0.02 Absolute Basophils 0.05 PT INR APTT VBG Lactate Sodium Potassium Chloride Carbon Dioxide Anion Gap BUN Creatinine Estimated GFR/1.73 m2 Glucose Calcium Total Bilirubin 1.5 H Conjugated Bilirubin 0.9 H AST 20 ALT 32 Alkaline Phosphatase 285 H Total Protein 6.9 Albumin 2.2 L Lipase TSH COVID-19 Source SARS-CoV-2 (PCR)
[2021-06-30 11:38] LABS: Clarity Clear (Clear); Specific Gravity >= 1.030 (1.005-1.025)
[2021-06-30 11:39] LABS: Bilirubin Small (Negative); Blood Trace-lysed (Negative); Glucose Negative (Negative); Ketones 40 mg/dL (Negative); Leukocyte Esterase Negative (Negative); Nitrite Negative (Negative)
[2021-06-30 11:43] LABS: Bacteria Few HPF (Negative); C & S Indicated? No/Sq. Contamination; Casts 0-2 Hyaline LPF (Negative); Crystals Negative HPF (Negative); Epithelial Cells Moderate HPF (Negative); Mucus Trace (Negative); RBC 0-2 HPF (0-2); WBC 0-2 HPF (0-5)
[2021-06-30] MEDS: Lactated Ringers 1,000 ML 100 ML IV (12:03)
[2021-06-30 15:37] VITALS: BP 121/79; PULSE 91; RESP 15; TEMP 37.9; O2SAT 95
[2021-06-30] MEDS: Enoxaparin 40 MG/0.4 ML SYR SC (18:12)
[2021-06-30] MEDS: FAMOTIDINE 20 MG/50 ML BAG 200 MG IVPB (19:46)
[2021-06-30 21:36] VITALS: RESP 19; O2SAT 98
[2021-06-30 23:35] VITALS: BP 120/66; PULSE 90; RESP 19; TEMP 36.7; O2SAT 96
[2021-07-01] MEDS: MORPHine 2 MG/ML SYR IVP ×6 (00:22→12:42)
[2021-07-01] MEDS: Normal Saline Flush 10 ML SYR IVP ×4 (00:22→12:12)
[2021-07-01] MEDS: ACETAMINOPHEN 1,000 MG/100 ML BTL 400 MG IVPB ×4 (00:23→18:43)
[2021-07-01] MEDS: Lactated Ringers 1,000 ML 100 ML IV ×2 (00:23→17:52)
[2021-07-01] MEDS: MEROPENEM 1 GM in Normal Saline 100 ML IVPB ×3 (01:53→19:11)
[2021-07-01 07:30] VITALS: BP 138/80; PULSE 86; RESP 18; TEMP 37.2; O2SAT 95
[2021-07-01 08:20] LABS: Abs Immature Grans 0.09 10^3/uL (0.0-0.06); Absolute Basophil Count 0.03 10^3/uL (0.0-0.2); Absolute Eosinophil Count 0.02 10^3/uL (0.0-0.7); Absolute Lymphocyte Count 0.64 10^3/uL (1.2-3.4); Absolute Monocyte Count 0.61 10^3/uL (0.1-0.8); Absolute Neutrophil Count 6.15 10^3/uL (1.2-6.7); Basophils % 0.4; Eosinophils % 0.3; HCT 27.6 % (36.0-46.0); HGB 8.9 g/dL (11.2-15.7); Immature Grans % 1.2; Lymphocytes % 8.5; MCH 29.2 pg (27.0-33.0); MCHC 32.2 % (32.0-36.0); MCV 90.5 fL (80-95); Monocytes % 8.1; Neutrophils % 81.5; Nucleated RBC 0 %; Platelet Count 311 10^3/uL (130-400); RBC 3.05 10^6/uL (3.93-5.22); RDW 14.2 % (11.7-14.6); RDW-SD 47.5 fL; WBC 7.54 10^3/uL (4.4-10.8)
[2021-07-01 08:38] LABS: AST 15 U/L (15-37); Albumin 1.9 g/dL (3.4-5.0); Alkaline Phosphatase 276 U/L (46-116); Anion Gap 6.1 mmol/L (3-11); BUN 6 mg/dL (7-18); CO2 31.9 mmol/L (21.0-32.0); CREATININE 0.5 mg/dL (0.55-1.02); Calcium 8.4 mg/dL (8.5-10.1); Chloride 101 mmol/L (98-107); Glucose 191 mg/dL (74-106); Potassium 3.2 mmol/L (3.5-5.1); Sodium 139 mmol/L (136-145); Total Protein 6.1 g/dL (6.4-8.2)
[2021-07-01 08:39] LABS: ALT 22 U/L (14-59)
--- NOTE | 2021-07-01 10:16 | PT.INTREAT ---
PT Notes Visit Reasons: Post Operative Problems Inpatient Physical Therapy Treatment Note [facility] Date: 07/01/21 OBJECTIVE: Sit-stand: SBA Stand-sit: SBA GAIT Assistive Device: FWW Weight bearing: Full Assist: SBA Distance: Bed to door and back x 2 THEREX: Pt completed UE and LE strengthening ther ex as per flow sheet. ASSESSMENT: Pt tolerated today's session fairly well. Pt was expereincing some discomfort but very motivated. Plan: Cont as per PT POC. TREATMENT CODE/TIME: 9:50-10:10 (20) TA
[2021-07-01] MEDS: Potassium Chloride 20 MEQ TABCR 40 MEQ PO ×2 (10:37→14:14)
[2021-07-01 11:30] VITALS: BP 134/79; PULSE 88; RESP 18; TEMP 37.5; O2SAT 97
[2021-07-01] MEDS: Insulin Aspart 300 UNITS/3 ML PEN SC ×2 (12:14→17:41)
--- NOTE | 2021-07-01 13:44 | MCONE_ITS ---
Date of service: 07/01/21 Time of Service: 13:44 Assessment and Plan Assessment and plan (1) Metastatic colon cancer in female: Start date: 07/01/21 Start time: 14:18 Status: Acute (2) Post-operative complication: Start date: 07/01/21 Start time: 14:19 Status: Acute Assessment and plan: Following open choleysysectomy. Being followed by surgery. On appropriate antibiotics. Afebrile and no leukocytosis. Will go for down and back to interventional radiology with CT guided drain/aspiration tomorrow. discussed with Dr. Fortune Qualifiers: Surgical complication system/body Area: digestive system Surgical complication type: unspecified Procedure type: digestive system Qualified Code(s): K91.89 - Other postprocedural complications and disorders of digestive system History of Present Illness History of Present Illness Chief Complaint: Colon cancer. DM 2 Narrative: 56 y.o female 56 year old female with metastatic colon cancer complicated by biliary dyskinesia who recently underwent open cholecystectomy on 06/13 complained of subjective fevers and anorexia asked to be seen by surgery for medical management. She was admitted on 06/29 for post operative complication. She is [place] [facility] [place] and back to interventional radiology CT guided drain/aspiration Overall she appears to be doing well from hospitalists standpoint. NO CP, SOB, cough. LSC. Patient would like something for sleep will order ambien. Fingersticks at HS. She is insulin naive, will order sensitive SSI, overall her fingersticks have been controlled. At this time patient is doing well from medical standpoint therefore we are signing off. Please let us know if we are needed and we would be happy to help. Thank you for the consult. Review of Systems All systems reviewed & are unremarkable except as noted in HPI and below PFSH Medical History Colon cancer Diabetes mellitus, type 2 Dyskinesia of gallbladder Hyperlipidemia Hypertension Surgical History section (~1985) Colonoscopy - MAC (08/14/16) History of appendectomy History of cholecystectomy (~06/13/21) Hx of hysterectomy 07/15/20 Ligation of fallopian tube 1990 S/P partial colectomy 2019- [place] Family History Other Diabetes Heart disease Personal history of malignant neoplasm Social History Smoking/Tobacco Use Status: Never Smoking risk assessment performed?: Yes Alcohol Intake: current Alcohol Intake frequency: holidays/special occasions only Drug use: Never Substance use type: does not use Current gender identity: female Do you feel safe at home: Yes Do you feel safe in your relationship?: Yes Exam Const General: cooperative, healthy appearing, comfortable, no acute distress, well developed and well groomed Resp Effort & Inspection: normal respiratory effort, no audible wheezes, no cough, not labored and no respiratory distress Cardio Palpation: normal PMI Rate: regular rate Rhythm: regular rhythm GI Inspection: normal to inspection, no abdominal wall ecchymosis, edema (abd), non-distended, incision (intact, small buldge adjacent to incision appears slightly larger today), no visible herniation and no visible pulsation Palpation: soft, not firm, no guarding and tender (mild terry-incisional, non- peritoneal) Percussion: normal to percussion Skin General skin exam: no ecchymosis, no erythema and no induration Neuro General: patient alert, patient awake and patient oriented x3 Cognition: normal cognition Speech: speech normal Results Last Vital Signs Temp 37.5 C 07/01/21 11:30 Pulse 88 07/01/21 11:30 Resp 18 07/01/21 11:30 BP 134/79 07/01/21 11:30 Pulse Ox 97 07/01/21 11:30 Labs Result diagrams: 07/01/21 08:02 07/01/21 08:02 Labs: Laboratory Results - last 24 hr 07/01/21 07/01/21 08:02 08:02 WBC 7.54 RBC 3.05 L Hgb 8.9 L Hct 27.6 L MCV 90.5 MCH 29.2 MCHC 32.2 RDW 14.2 Plt Count 311 MPV 9.0 Immature Gran % 1.2 Neutrophils % 81.5 Lymphocytes % 8.5 Monocytes % 8.1 Eosinophils % 0.3 Basophils % 0.4 Nucleated RBC % 0 Absolute Neutrophils 6.15 Absolute Lymphocytes 0.64 L Absolute Monocytes 0.61 Absolute Eosinophils 0.02 Absolute Basophils 0.03 Sodium 139 Potassium 3.2 L Chloride 101 Carbon Dioxide 31.9 Anion Gap 6.1 BUN 6 L Creatinine 0.5 L Estimated GFR/1.73 m2 >= 60.00 Glucose 191 H Calcium 8.4 L Total Bilirubin 1.0 AST 15 ALT 22 Alkaline Phosphatase 276 H Total Protein 6.1 L Albumin 1.9 L
[2021-07-01] MEDS: HYDROmorphone 2 MG/ML VIAL 0.5 MG IVP (14:15)
[2021-07-01] MEDS: MORPHine 4 MG/ML SYR IVP ×2 (15:28→16:42)
[2021-07-01 15:53] VITALS: BP 127/82; PULSE 91; RESP 18; TEMP 36.7; O2SAT 98
[2021-07-01] MEDS: Enoxaparin 40 MG/0.4 ML SYR SC (18:50)
--- NOTE | 2021-07-01 19:00 | W.PM.PROGNOT ---
Date of Service Date of service: 07/01/21 Time of Service: 15:00 Assessment and Plan Assessment and plan (1) Post-operative complication: Status: Acute Assessment and plan: -Plan to go [place] [facility] [place] for [place]/fluid aspiration as an initial attempt to determine etiology and potentially treat with the least invasive measure, patient is aware that she may ultimately end up needing further surgery depending on what the fluid is and if she decompensates clinically. She understands that she is at a high risk for this possibility given her complex co-morbidities and active chemotherapy. -Continue IV antibiotics -Analgesics adjusted today, patient denies changes in level of pain and states RN has been more attentive to pain treatment today -Lovenox for DVT ppx -Appreciate hospitalist consult for assistance with medical management -Encourage ambulation, has been seen by PT Qualifiers: Surgical complication system/body Area: digestive system Surgical complication type: unspecified Procedure type: digestive system Qualified Code(s): K91.89 - Other postprocedural complications and disorders of digestive system (2) Metastatic colon cancer in female: Status: Acute (3) Diabetes mellitus, type 2: Status: None Qualifiers: 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: unspecified penitentiary insulin use status Diabetes mellitus complication status: without complication Qualified Code(s): E11.9 - Type 2 diabetes mellitus without complications (4) Abdominal carcinomatosis: Status: Acute Subjective Subjective Patient reports: no new complaints, still having pain, bowel movement and afebrile; denies nausea and vomiting Exam Const General: cooperative, healthy appearing, no acute distress and other (appears more uncomfortable today but denies change in pain) Resp Effort & Inspection: normal respiratory effort, no audible wheezes, no cough and no respiratory distress Cardio Rate: regular rate Rhythm: regular rhythm GI Inspection: incision (intact,well approximated, no signs of wound infection) Palpation: soft, not firm, no guarding and tender (terry-incisional, small buldge unchanged, no subcutaneous fluid/hernia on CT) with no rebound tenderness Percussion: normal to percussion Neuro General: patient alert, patient awake and patient oriented x3 Objective Last Vital Signs Temp 98.1 F 07/01/21 15:53 Pulse 91 H 07/01/21 15:53 Resp 18 07/01/21 15:53 BP 127/82 07/01/21 15:53 Pulse Ox 98 07/01/21 15:53 Laboratory Results - last 24 hr 07/01/21 07/01/21 08:02 08:02 WBC 7.54 RBC 3.05 L Hgb 8.9 L Hct 27.6 L MCV 90.5 MCH 29.2 MCHC 32.2 RDW 14.2 Plt Count 311 MPV 9.0 Immature Gran % 1.2 Neutrophils % 81.5 Lymphocytes % 8.5 Monocytes % 8.1 Eosinophils % 0.3 Basophils % 0.4 Nucleated RBC % 0 Absolute Neutrophils 6.15 Absolute Lymphocytes 0.64 L Absolute Monocytes 0.61 Absolute Eosinophils 0.02 Absolute Basophils 0.03 Sodium 139 Potassium 3.2 L Chloride 101 Carbon Dioxide 31.9 Anion Gap 6.1 BUN 6 L Creatinine 0.5 L Estimated GFR/1.73 m2 >= 60.00 Glucose 191 H Calcium 8.4 L Total Bilirubin 1.0 AST 15 ALT 22 Alkaline Phosphatase 276 H Total Protein 6.1 L Albumin 1.9 L
[2021-07-01] MEDS: HYDROmorphone 2 MG/ML VIAL 1 MG IVP (19:17)
[2021-07-01] MEDS: FAMOTIDINE 20 MG/50 ML BAG 200 MG IVPB (20:19)
[2021-07-01] MEDS: Zolpidem 5 MG TAB PO (20:35)
[2021-07-01 23:09] VITALS: BP 120/75; PULSE 91; RESP 16; TEMP 37.1; O2SAT 94
[2021-07-02] MEDS: ACETAMINOPHEN 1,000 MG/100 ML BTL 400 MG IVPB ×5 (00:54→23:25)
[2021-07-02] MEDS: MEROPENEM 1 GM in Normal Saline 100 ML IVPB ×3 (01:17→20:37)
[2021-07-02] MEDS: HYDROmorphone 2 MG/ML VIAL 1 MG IVP ×3 (05:58→21:14)
[2021-07-02] MEDS: Normal Saline Flush 10 ML SYR IVP ×3 (05:59→11:04)
[2021-07-02] MEDS: Lactated Ringers 1,000 ML 100 ML IV ×2 (06:00→21:44)
[2021-07-02 07:15] LABS: Abs Immature Grans 0.09 10^3/uL (0.0-0.06); Absolute Basophil Count 0.03 10^3/uL (0.0-0.2); Absolute Eosinophil Count 0.08 10^3/uL (0.0-0.7); Absolute Lymphocyte Count 0.77 10^3/uL (1.2-3.4); Absolute Monocyte Count 0.55 10^3/uL (0.1-0.8); Absolute Neutrophil Count 6.13 10^3/uL (1.2-6.7); Basophils % 0.4; HCT 27.8 % (36.0-46.0); HGB 8.9 g/dL (11.2-15.7); Immature Grans % 1.2; Lymphocytes % 10.1; MCH 28.9 pg (27.0-33.0); MCV 90.3 fL (80-95); Monocytes % 7.2; Neutrophils % 80.1; Nucleated RBC 0 %; Platelet Count 316 10^3/uL (130-400); RBC 3.08 10^6/uL (3.93-5.22); RDW 14.6 % (11.7-14.6); RDW-SD 48.3 fL; WBC 7.65 10^3/uL (4.4-10.8)
--- NOTE | 2021-07-02 07:54 | PGE_ITS ---
Date of Service Date of service: 07/02/21 Time of Service: 07:54 Assessment and Plan Assessment and plan (1) Post-operative complication: Status: Acute Assessment and plan: -Plan [place] [facility] [place]fluid aspiration as an initial attempt to determine etiology and potentially treat with the least invasive measure, patient is aware that she may ultimately end up needing further surgery depending on what the fluid is and if she decompensates clinically. She understands that she is at a high risk for this possibility given her complex co-morbidities and active chemotherapy. -Continue IV antibiotics -Patient reports good pain control this morning. -Lovenox for DVT ppx -Encourage ambulation, has been seen by PT Qualifiers: Surgical complication system/body Area: digestive system Surgical complication type: unspecified Procedure type: digestive system Qualified Code(s): K91.89 - Other postprocedural complications and disorders of digestive system (2) Metastatic colon cancer in female: Status: Acute (3) Diabetes mellitus, type 2: Status: None Qualifiers: Diabetes mellitus intermodal customer service insulin use: unspecified retirement insulin use status Diabetes mellitus complication status: without complication Qualified Code(s): E11.9 - Type 2 diabetes mellitus without complications (4) Abdominal carcinomatosis: Status: Acute Subjective Subjective Interval history since last seen: Patient reports that she had a great nights sleep last night. She expresses she woke up with abdominal pain this morning, which has improved since recieving dilaudid. She denies any nausea or vomiting. She had a BM yesterday. Exam Const General: cooperative, healthy appearing and comfortable Orientation: alert and oriented x3 GI Inspection: normal to inspection and incision (Edges are approximated and nearly healed) Palpation: soft, no guarding and tender Other: Inferior portion of incision is swollen, area is firm to the touch and tender. No erythema or superficial swelling. Objective Last Vital Signs Temp 37.1 C 07/01/21 23:09 Pulse 91 H 07/01/21 23:09 Resp 16 07/01/21 23:09 BP 120/75 07/01/21 23:09 Pulse Ox 94 07/01/21 23:09 Laboratory Results - last 24 hr 07/01/21 07/01/21 07/02/21 08:02 08:02 06:50 WBC 7.54 7.65 RBC 3.05 L 3.08 L Hgb 8.9 L 8.9 L Hct 27.6 L 27.8 L MCV 90.5 90.3 MCH 29.2 28.9 MCHC 32.2 32.0 RDW 14.2 14.6 Plt Count 311 316 MPV 9.0 9.0 Immature Gran % 1.2 1.2 Neutrophils % 81.5 80.1 Lymphocytes % 8.5 10.1 Monocytes % 8.1 7.2 Eosinophils % 0.3 1.0 Basophils % 0.4 0.4 Nucleated RBC % 0 0 Absolute Neutrophils 6.15 6.13 Absolute Lymphocytes 0.64 L 0.77 L Absolute Monocytes 0.61 0.55 Absolute Eosinophils 0.02 0.08 Absolute Basophils 0.03 0.03 Sodium 139 Potassium 3.2 L Chloride 101 Carbon Dioxide 31.9 Anion Gap 6.1 BUN 6 L Creatinine 0.5 L Estimated GFR/1.73 m2 >= 60.00 Glucose 191 H Calcium 8.4 L Total Bilirubin 1.0 AST 15 ALT 22 Alkaline Phosphatase 276 H Total Protein 6.1 L Albumin 1.9 L
[2021-07-02] MEDS: Insulin Aspart 300 UNITS/3 ML PEN SC (07:58)
[2021-07-02 08:32] LABS: Albumin 1.8 g/dL (3.4-5.0); BUN 8 mg/dL (7-18); Bilirubin, Total 0.7 mg/dL (0.2-1.0); CREATININE 0.5 mg/dL (0.55-1.02); Calcium 8.6 mg/dL (8.5-10.1); Glucose 228 mg/dL (74-106); Total Protein 6.1 g/dL (6.4-8.2)
[2021-07-02 08:33] LABS: ALT 23 U/L (14-59); AST 17 U/L (15-37); Alkaline Phosphatase 290 U/L (46-116); Anion Gap 6.1 mmol/L (3-11); CO2 30.9 mmol/L (21.0-32.0); Chloride 103 mmol/L (98-107); Sodium 140 mmol/L (136-145)
[2021-07-02 08:49] VITALS: BP 127/81; PULSE 73; RESP 16; TEMP 36.8; O2SAT 96
[2021-07-02] MEDS: Normal Saline 500 ML 30 ML IV (10:25)
--- NOTE | 2021-07-02 11:06 | PT.INNT ---
Date of service: 07/02/21 Time of Service: 11:06 PT Notes Visit Reasons: Post Operative Problem Patient states that she worked well with weekend PT staff and has been ambulatory inside her room with no issues and no AD. Today, she states that she is in preparation to go to [facility] for fluid drainage after lunch and would prefer to rest as she feels that the commute may tire her out. She reports pain in her surgery site and states that she has just taken her medications. She is agreeable to beisng seen tomorrow morning. Thank you for the opportunity to participate in the care of this patient. Candice Torres PT, DPT, CLT [facility] [place], [place]
[2021-07-02 11:32] LABS: Prealbumin 6 mg/dL (20-40)
--- NOTE | 2021-07-02 17:24 | CMPROGNOTE_ITS ---
- If Service Date Differs Date of service: 07/02/21 Time of Service: 17:24 Care Management Progress Note S/O:Sallie was lying in bed when CM met with her. She was pleasant as usual and appeared to be in good spirits. Sallie confirmed that she is going to [facility] [place] today. She anticipated having the procedure at 2pm but learned that it would likely be around 3:30. She verbalized that she hoped to be discharged home tomorrow. A: Sallie is a 56 year old woman admitted with a post-operative abscess. P: Sallie was transferred to [facility] today for a down and back abscess drainage procedure. She will likely be discharged home with no new services and follow up with her community providers. Sallie will transport with family. CM will continue to support Sallie and her discharge planning needs.
[2021-07-02 19:43] VITALS: BP 148/82; PULSE 95; RESP 16; TEMP 38.2; O2SAT 96
[2021-07-02] MEDS: Enoxaparin 40 MG/0.4 ML SYR SC (19:50)
[2021-07-02] MEDS: Zolpidem 5 MG TAB PO (21:14)
[2021-07-02] MEDS: FAMOTIDINE 20 MG/50 ML BAG 200 MG IVPB (21:15)
[2021-07-02 23:31] VITALS: BP 131/78; PULSE 78; RESP 18; TEMP 36.8; O2SAT 96
[2021-07-03] MEDS: MEROPENEM 1 GM in Normal Saline 100 ML IVPB ×3 (01:30→19:22)
[2021-07-03] MEDS: ACETAMINOPHEN 1,000 MG/100 ML BTL 400 MG IVPB ×2 (05:12→11:35)
[2021-07-03] MEDS: HYDROmorphone 2 MG/ML VIAL 1 MG IVP ×2 (05:21→10:01)
[2021-07-03] MEDS: Potassium Chloride 20 MEQ TABCR 40 MEQ PO (08:30)
[2021-07-03 09:10] VITALS: BP 144/83; PULSE 77; RESP 16; TEMP 36.8; O2SAT 96
[2021-07-03] MEDS: Normal Saline 500 ML 30 ML IV (09:41)
[2021-07-03] MEDS: Normal Saline Flush 10 ML SYR IVP (10:02)
[2021-07-03 11:37] LABS: Albumin 1.9 g/dL (3.4-5.0); BUN 5 mg/dL (7-18); CREATININE 0.4 mg/dL (0.55-1.02); Calcium 8.4 mg/dL (8.5-10.1); Total Protein 6.1 g/dL (6.4-8.2)
[2021-07-03 11:38] LABS: ALT 20 U/L (14-59); AST 20 U/L (15-37); Alkaline Phosphatase 373 U/L (46-116); Anion Gap 7.5 mmol/L (3-11); Bilirubin, Total 0.6 mg/dL (0.2-1.0); CO2 30.5 mmol/L (21.0-32.0); Chloride 103 mmol/L (98-107); Potassium 3.4 mmol/L (3.5-5.1); Sodium 141 mmol/L (136-145)
[2021-07-03 11:39] LABS: Glucose 134 mg/dL (74-106); HGB 9.1 g/dL (11.2-15.7); RBC 3.21 10^6/uL (3.93-5.22); WBC 7.64 10^3/uL (4.4-10.8)
[2021-07-03 11:40] LABS: Absolute Basophil Count 0.04 10^3/uL (0.0-0.2); Absolute Eosinophil Count 0.11 10^3/uL (0.0-0.7); Absolute Lymphocyte Count 1.05 10^3/uL (1.2-3.4); Absolute Monocyte Count 0.53 10^3/uL (0.1-0.8); Absolute Neutrophil Count 5.83 10^3/uL (1.2-6.7); Basophils % 0.5; Eosinophils % 1.4; HCT 28.9 % (36.0-46.0); Lymphocytes % 13.7; MCH 28.3 pg (27.0-33.0); MCHC 31.5 % (32.0-36.0); MPV 9.2 fL (8.0-11.0); Monocytes % 6.9; Neutrophils % 76.5; Nucleated RBC 0 %; Platelet Count 396 10^3/uL (130-400); RDW 14.4 % (11.7-14.6); RDW-SD 47.5 fL
[2021-07-03 11:41] LABS: Abs Immature Grans 0.08 10^3/uL (0.0-0.06)
--- NOTE | 2021-07-03 11:46 | PDOC.CMPRO ---
- If Service Date Differs Date of service: 07/03/21 Time of Service: 11:47 Care Management Progress Note S/O: Sallie was laying in bed when CM met with her, visiting with her . She was pleasant and easily engaged in conversation. Sallie had just met with Dr. Vance and given a GI cocktail for epigastric pain with some noted improvement. Sallie hopes that she will be discharged home tomorrow and does not feel that services will be needed at discharge. A: Sallie is a 56 year old woman admitted with a post-operative abscess. P: Sallie was transferred to [facility] [place] for a down and back abscess drainage procedure. She will likely be discharged home with no new services and follow up with her community providers. Sallie will transport with family. CM will continue to support Sallie and her discharge planning needs.
[2021-07-03] MEDS: Insulin Aspart 300 UNITS/3 ML PEN SC ×2 (12:03→16:49)
--- NOTE | 2021-07-03 12:47 | DIABASSESS_ITS ---
Date of service: 07/03/21 Time of Service: 12:47 Diabetes Note NOTE: Assessment: 56yo female admitted with abdominal carcinomatosis and PMH significant for metastatic colon cancer, DMII. Meds: Acetaminophen, enoxaparin, famotidine, hydromorphone, sensitive scale insulin aspart protocol, lactated ringers, meropenem, KCl. Pt on regular diet order and states is at baseline for tolerance ? feels stomach pain no matter which food choice she considers, even states broths have caused pain. Noted ~21kg wt loss since July 2020 ? pt states this wt loss was unintentional and due to health complications. Most recent A1C was 8.1% (12/14/20) and is above glycemic target for age. Pt declines nutrition supplements while admitted, however verbalizes understanding of the importance of meeting her nutrition needs. Diagnosis: Moderate malnutrition/involuntary weight loss in the context of chronic illness r/t pain and lower po intake AEB 20% loss of UBW x 1year. Intervention: Encouraged pt to order significant source of protein at each meal and aim for better tolerated food choices to navigate around stomach pain if possible. Pt is interested in outpt diabetes education with [facility] for working on glycemic management ? gave contact info. Monitoring/evaluation: Will monitor closely for continued wt loss and significant changes in labs, meds. Oraciojohn FultonRomana NDTR ? Salesperson Furniture Time Spent in Nutritional Counseling and Treatment: 15 minutes
--- NOTE | 2021-07-03 14:47 | PGE_ITS ---
Date of Service Date of service: 07/03/21 Time of Service: 12:30 Assessment and Plan Assessment and plan (1) Abdominal carcinomatosis: Status: Acute (2) Abdominal pain: Status: Acute Assessment and plan: Sallie is doing okay. She is still complaining of some epigastric pain after eating. She also feels bloated. I wonder whether tristen varner either has some bile reflux into her stomach versus gastritis from too much acid. I did give her a GI cocktail which she did have some improvement on. I have started her on Carafate and switched her from H2 blockers to PPI. I did discuss her case with her primary care physician Dr. Velazquez. Unfortunately I do think that the ascites is due to progression of her cancer. She has not had her palliative chemo since her surgery. Certainly from my point of view she could get started with that as soon as he felt comfortable with it. Her incisions are well-healed at this time. My hope is that we will be able to send her home tomorrow and finish a 10-day course of antibiotics. Subjective Subjective Interval history since last seen: Sallie is doing OK. She still has some epigastric pain and bloating after eating. We discussed the procedure that she had done at [facility] and the findings. The fluid was pretty much ascitis. It was send for culture but I am not sure it will grow anything as she has been on antibiotics since friday. Exam Const General: healthy appearing, comfortable and no acute distress Orientation: oriented x3 HENWI Head: normocephalic and atraumatic Resp Effort & Inspection: normal respiratory effort GI Inspection: normal to inspection and incision (c/d/i) Palpation: soft, no hepatosplenomegaly and tender (mild epigastric tenderness) Objective Last Vital Signs Temp 98.2 F 07/03/21 09:10 Pulse 77 07/03/21 09:10 Resp 16 07/03/21 09:10 BP 144/83 H 07/03/21 09:10 Pulse Ox 96 07/03/21 09:10 Laboratory Results - last 24 hr 07/03/21 07/03/21 06:15 06:15 WBC 7.64 RBC 3.21 L Hgb 9.1 L Hct 28.9 L MCV 90.0 MCH 28.3 MCHC 31.5 L RDW 14.4 Plt Count 396 MPV 9.2 Immature Gran % 1.0 Neutrophils % 76.5 Lymphocytes % 13.7 Monocytes % 6.9 Eosinophils % 1.4 Basophils % 0.5 Nucleated RBC % 0 Absolute Neutrophils 5.83 Absolute Lymphocytes 1.05 L Absolute Monocytes 0.53 Absolute Eosinophils 0.11 Absolute Basophils 0.04 Sodium 141 Potassium 3.4 L Chloride 103 Carbon Dioxide 30.5 Anion Gap 7.5 BUN 5 L Creatinine 0.4 L Estimated GFR/1.73 m2 >= 60.00 Glucose 134 H D Calcium 8.4 L Total Bilirubin 0.6 AST 20 ALT 20 Alkaline Phosphatase 373 H Total Protein 6.1 L Albumin 1.9 L
[2021-07-03] MEDS: Potassium Chloride 20 MEQ TABCR PO (15:11)
--- NOTE | 2021-07-03 15:14 | PT.INTREAT ---
Date of service: 07/03/21 Time of Service: 15:14 PT Notes Visit Reasons: Post Operative Problem Inpatient Physical Therapy Treatment Note [facility] Date: 07/03/2021 PRECAUTIONS: Activity as tolerated. SUBJECTIVE: Pleasant and cooperative. Reports pain in surgical site at 6-7/10. Nurse Ailyn aware and to medicate patient for pain. OBJECTIVE: In NAD. present in room for session. PAIN: Surgical site pain at 6?7/10 BED MOBILITY/TRANSFERS Rolling L/R: Independent Supine-sit: Independent Sit-supine: Independent Sit-stand: Independent Stand-sit: Independent Bed-Chair: Independent Chair-bed: Independent GAIT Assistive Device: No device Weight bearing: Full weightbearing Assist: Supervision Distance: 250 feet Deviation: Unremarkable STAIRS: Up and down 6 x 4 inch steps and 4 x 6 inch steps while holding onto 1 rail with supervision assist provided using step over step pattern ASSESSMENT: Patient made independent in her room for all transfers and bed mobility. May walk in hallway with supervision in case pain level negatively impacts safety. PLAN: Will discharge from skilled PT services once patient is made independent in the hallway tomorrow morning. DISCHARGE RECOMMENDATIONS: [] [X] Home with no services. Home when medically cleared by surgeon. No equipment needs at this time. [] Home with services [specify] [] Home with outpatient PT [] [] SNF for continued rehabilitation [] [] [facility] [] [] SNF versus LTC based on ability to participate and progress [] TREATMENT CODE/TIME: 96797 x 25 minutes beginning at 15:14 PM.
[2021-07-03] MEDS: oxyCODONE 5 MG TAB PO ×2 (15:18→21:10)
[2021-07-03 15:20] LABS: C-Reactive Protein 17.83 mg/dL (0.0-0.3)
[2021-07-03 15:30] VITALS: BP 144/85; PULSE 78; RESP 16; TEMP 37.6; O2SAT 95
[2021-07-03] MEDS: metFORMIN 500 MG TAB 1000 MG PO (16:47)
[2021-07-03] MEDS: Sucralfate 1 GM TAB PO ×2 (16:47→21:10)
[2021-07-03] MEDS: Acetaminophen 325 MG TAB 650 MG PO (18:22)
[2021-07-03] MEDS: Lidocaine 5% Patch 1 PATCH TP (19:23)
[2021-07-03] MEDS: Omeprazole 20 MG CAPCR PO (19:23)
[2021-07-03] MEDS: Enoxaparin 40 MG/0.4 ML SYR SC (19:23)
[2021-07-03] MEDS: Ondansetron 4 MG/2 ML VIAL IVP (19:42)
[2021-07-03] MEDS: Dexamethasone 4 MG TAB PO (19:43)
[2021-07-03 19:50] VITALS: RESP 16
[2021-07-03] MEDS: Citalopram 20 MG TAB PO (21:10)
[2021-07-03] MEDS: Zolpidem 10 MG TAB PO (21:10)
[2021-07-03] MEDS: Gabapentin 300 MG CAP PO (22:36)
[2021-07-03 23:10] VITALS: BP 150/88; PULSE 90; RESP 16; TEMP 36.9; O2SAT 95
[2021-07-04] MEDS: oxyCODONE 10 MG TAB PO ×2 (02:56→10:45)
[2021-07-04] MEDS: MEROPENEM 1 GM in Normal Saline 100 ML IVPB ×2 (02:56→10:39)
[2021-07-04] MEDS: Acetaminophen 325 MG TAB 650 MG PO (02:57)
[2021-07-04] MEDS: Ondansetron 4 MG/2 ML VIAL IVP ×2 (02:57→10:45)
[2021-07-04] MEDS: Normal Saline Flush 10 ML SYR IVP ×2 (06:45→07:52)
[2021-07-04 07:14] LABS: LDH 115 U/L (81-234)
[2021-07-04] MEDS: Omeprazole 20 MG CAPCR PO (07:52)
[2021-07-04] MEDS: Protein Nutritional Supplement 16 GM 1 OUNCE PACKET PO (07:53)
[2021-07-04] MEDS: SITagliptin 100 MG TAB PO (07:54)
[2021-07-04] MEDS: Glimepiride 1 MG TAB PO (07:54)
[2021-07-04] MEDS: metFORMIN 500 MG TAB 1000 MG PO (07:54)
[2021-07-04] MEDS: Losartan 50 MG TAB 100 MG PO (07:54)
[2021-07-04] MEDS: Sucralfate 1 GM TAB PO ×2 (07:54→11:36)
[2021-07-04] MEDS: Simvastatin 20 MG TAB PO (07:54)
[2021-07-04] MEDS: Dexamethasone 4 MG TAB PO (07:55)
[2021-07-04] MEDS: Potassium Chloride 20 MEQ TABCR 40 MEQ PO (07:55)
[2021-07-04 08:05] VITALS: BP 118/64; PULSE 82; RESP 20; TEMP 36.4; O2SAT 94
[2021-07-04] MEDS: Insulin Aspart 300 UNITS/3 ML PEN SC ×2 (08:06→11:37)
[2021-07-04] MEDS: LIDOCAINE Patch Removal 1 EACH TP (08:08)
--- NOTE | 2021-07-04 08:51 | PDOC.CMPRO ---
- If Service Date Differs Date of service: 07/04/21 Time of Service: 08:51 Care Management Progress Note S/O: A: Sallie is a 56 year old woman admitted with a post-operative abscess. P: Sallie was transferred to [facility] yesterday for a down and back abscess drainage procedure. She will likely be discharged home with no new services and follow up with her community providers. Sallie will transport with family. will continue to support Sallie and her discharge planning needs.
--- NOTE | 2021-07-04 09:36 | PGE_ITS ---
Documented by User: MADAI Case 07/04/21 09:41 Date of Service Date of service: 07/04/21 Time of Service: 09:36 Subjective Subjective Interval history since last seen: Sallie reports that she is feeling well this morning and is eager to go home today. She expresses continued abdominal bloating and tenderness. Single episode of vomiting last night. Denies any nausea or vomiting this morning. Exam Const General: cooperative, healthy appearing and comfortable Orientation: alert and oriented x3 Resp Effort & Inspection: normal respiratory effort, no audible wheezes and no cough GI Inspection: non-distended Palpation: soft, no guarding and tender Objective Last Vital Signs Temp 36.9 C 07/03/21 23:10 Pulse 90 07/03/21 23:10 Resp 16 07/03/21 23:10 BP 150/88 H 07/03/21 23:10 Pulse Ox 95 07/03/21 23:10 Laboratory Results - last 24 hr 07/03/21 07/03/21 07/03/21 06:15 06:15 06:15 WBC 7.64 RBC 3.21 L Hgb 9.1 L Hct 28.9 L MCV 90.0 MCH 28.3 MCHC 31.5 L RDW 14.4 Plt Count 396 MPV 9.2 Immature Gran % 1.0 Neutrophils % 76.5 Lymphocytes % 13.7 Monocytes % 6.9 Eosinophils % 1.4 Basophils % 0.5 Nucleated RBC % 0 Absolute Neutrophils 5.83 Absolute Lymphocytes 1.05 L Absolute Monocytes 0.53 Absolute Eosinophils 0.11 Absolute Basophils 0.04 Sodium 141 Potassium 3.4 L Chloride 103 Carbon Dioxide 30.5 Anion Gap 7.5 BUN 5 L Creatinine 0.4 L Estimated GFR/1.73 m2 >= 60.00 Glucose 134 H D Calcium 8.4 L Total Bilirubin 0.6 AST 20 ALT 20 Alkaline Phosphatase 373 H Lactate Dehydrogenase C-Reactive Protein 17.83 H Total Protein 6.1 L Albumin 1.9 L 07/04/21 06:40 WBC RBC Hgb Hct MCV MCH MCHC RDW Plt Count MPV Immature Gran % Neutrophils % Lymphocytes % Monocytes % Eosinophils % Basophils % Nucleated RBC % Absolute Neutrophils Absolute Lymphocytes Absolute Monocytes Absolute Eosinophils Absolute Basophils Sodium Potassium Chloride Carbon Dioxide Anion Gap BUN Creatinine Estimated GFR/1.73 m2 Glucose Calcium Total Bilirubin AST ALT Alkaline Phosphatase Lactate Dehydrogenase 115 C-Reactive Protein Total Protein Albumin Documented by User: Yudy Rosas JoshambrosoiDO 07/04/21 12:56 Assessment and Plan Assessment and plan (1) Metastatic colon cancer in female: Status: Acute (2) Abdominal carcinomatosis: Status: Acute (3) Hyperlipidemia: (4) Hypertension: (5) Diabetes mellitus, type 2: Status: None Qualifiers: Diabetes mellitus complication status: without complication Diabetes mellitus 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 She had a CT in the ER which showed a possible abscess. She went down [facility] and had fluid aspirated from the abdomen. This is appears to be ascitic fluid only. There has been no growth at 24 hours. Gram stain shows no neutrophils/WBCs or bile. Her pathology on the gallbladder did show an consistent with colorectal cancer. She continues to have abdominal pain and nausea. I think this is more a function of her cancer progressing than rather related to her postoperative complication. Patient will be discharged home today and needs to follow-up with her oncologist as soon as possible. Patient is not having diarrhea and should stop the cholestyramine. We will send her home on 5 days of Augmentin Lidocaine patches for pain
--- NOTE | 2021-07-04 11:26 | DSE_ITS ---
Date of service: 07/04/21 Time of Service: 11:26 DS: Diagnosis Discharge Diagnosis (1) Abdominal carcinomatosis: Status: Acute (2) Abdominal pain: Status: Acute Discharge Plan Disposition Condition: Improving Discharge Details Reason For Visit: Post Operative Problem Admit Date/Time: 06/29/21 16:27 Admit Provider: Shandra Maza Attending Provider: Shandra Maza Primary Care Provider: Candice Velazquez Home Meds and New Rx's Prescriptions: New sucralfate [Carafate] 1 gram tablet 1 g PO QACHS 30 Days Qty: 120 RF: 12 amoxicillin-pot clavulanate [Augmentin] 875-125 mg tablet 1 tab PO BID 5 Days Qty: 10 RF: 0 Bio-K plus 50 billion cell capsule,delayed release(DR/EC) 1 cap PO DAILY Qty: 30 RF: 0 lidocaine 5 % adhesive patch,medicated 1 patch topical DAILY Qty: 15 RF: 6 Continued zolpidem [Ambien] 10 mg tablet 10 mg PO QHS PRNRF: 0 losartan 100 mg tablet 100 mg PO DAILY RF: 0 glimepiride 1 MG tablet 1 mg PO DAILY RF: 0 pioglitazone [Actos] 30 MG tablet 45 mg PO DAILY RF: 0 metformin 500 MG tablet 1,000 mg PO BID RF: 0 Januvia 100 MG tablet 100 mg PO DAILY RF: 0 acetaminophen [Tylenol] 325 mg capsule 650 mg PO Q6H PRNRF: 0 tramadol 50 mg tablet 50 mg PO Q6H PRNRF: 0 citalopram 20 mg tablet 20 mg PO HS RF: 0 senna 8.6 mg capsule 8.6 mg PO DAILY RF: 0 lidocaine-prilocaine 2.5-2.5 % cream 1 applic topical ONCE RF: 0 magnesium citrate Solution 50 ml PO DAILY PRNRF: 0 dexamethasone 4 mg tablet 4 mg PO BID RF: 0 ondansetron HCl 8 mg tablet 8 mg PO Q8H RF: 0 Avastin 25 mg/mL solution IV RF: 0 simvastatin 20 mg tablet 20 mg PO DAILY RF: 0 pantoprazole [Protonix] [address] For Susp In Packet 40 mg PO DAILY RF: 0 oxycodone 5 mg tablet 5 mg PO Q6H PRNQty: 14 RF: 0 Discontinued cholestyramine (with sugar) 4 gram powder in packet PO BID PRNRF: 0 docusate sodium [Colace] 100 mg capsule 100 mg PO DAILY RF: 0 lactulose 10 gram/15 mL solution 10 g PO DAILY RF: 0 metronidazole 500 mg tablet 500 mg PO DAILY RF: 0 ciprofloxacin HCl 500 mg tablet 500 mg PO DAILY RF: 0 Discharge Instructions Additional Instructions: -No driving if you are taking pain narcotic medications. -Follow-up with Dr. Vance in 1 week. -No dietary restrictions -no straining to move bowels -pain meds are very constipating: if you do not move your bowels daily take a dose of OTC milk of magnesia -It is ok to shower. No bathe, soaking, swimming or hot tubs -Keep wound clean and dry. Wash incision with soap and water daily. Pat dry, don't rub. -Diabetic Protein supplements daily. You may find that your appetite is smaller. Eat 3-6 small meals throughout the day. It is important to drink lots of water, 6-10 glasses a day. -If you were given an incentive spirometry (breathing support services specialist?), continue to do this 10x/hour while awake. -We do want you up walking, at least 5-6 times per day. This is very important to prevent pneumonia and blood clots. You can climb stairs, take them slowly. -f/u w/ oncology as soon as possible to decide when to resume chemo. -new Rx: antibiotics- finish all ProBiotic for 30 days after being on ABX. -lidocaine patches over incision for pain releif. 12 hrs on/12 off. -carafate 30 mins before meals and at bedtime for nausea. Activity:: no lifting over 20#'s x 2 wks Remove Dressings/Wound Care:: 24 hours Shower/Bathe:: 24 hours Activity:: see above Equipment/Supplies:: No Equipment Needed Diet:: Carb Counting DS: Summary Time Spent with Patient providing and/or coordinating discharge services: Greater than 30 minutes Status at Discharge Functional status at discharge: independent ambulation Overall status at discharge: patient is not back to baseline Mental Status: mental status grossly normal Speech and Movement: speech and movement normal Mood: congruent mood Affect: normal affect Exam Psych Mental Status: mental status grossly normal Speech and Movement: speech and movement normal Mood: congruent mood Affect: normal affect DS: Data Vitals/I&O Vitals and I&O: Vital Signs Temperature 36.9 C 07/03/21 23:10 Temperature Source Skin 07/03/21 23:10 Pulse 90 07/03/21 23:10 Pulse Rhythm Regular 07/04/21 03:23 Pulse 89 06/29/21 16:20 Respiratory Rate 16 07/03/21 23:10 Respiratory Effort 07/04/21 03:23 Respiratory Depth Normal 07/04/21 03:23 Respiratory Pattern Normal 07/03/21 16:07 Blood Pressure 150/88 H 07/03/21 23:10 Blood Pressure Mean 74 06/29/21 16:16 Blood Pressure Position Sitting 06/29/21 13:24 Pulse Oximetry 95 07/03/21 23:10 Oxygen Delivery Method Room Air 07/03/21 23:10 Oxygen Flow Rate 0 07/03/21 23:10 Pain Level 7 07/04/21 10:45 Comment 06/29/21 23:45 Intake & Output 07/03/21 07/03/21 07/04/21 11:59 23:59 11:59 Intake Total 1290 / 1870 580 / 1870 100 / 100 Balance 1290 / 1870 580 / 1870 100 / 100 Intake: IV 800 / 900 100 / 900 100 / 100 Oral 490 / 970 480 / 970 Other: Urine Color Yellow Urine Appearance Clear Clear Comment pt voiding independently in toilet. urine not measured Stool Size Moderate Small Stool Characteristics Soft Data Completed and Pending Labs on day of discharge: Labs from last 24 hours 07/04/21 07/04/21 07/03/21 06:40 06:40 06:15 WBC RBC Hgb Hct MCV MCH MCHC RDW Plt Count MPV Immature Gran % Neutrophils % Lymphocytes % Monocytes % Eosinophils % Basophils % Nucleated RBC % Absolute Neutrophils Absolute Lymphocytes Absolute Monocytes Absolute Eosinophils Absolute Basophils Sodium Potassium Chloride Carbon Dioxide Anion Gap BUN Creatinine Estimated GFR/1.73 m2 Glucose Calcium Total Bilirubin AST ALT Alkaline Phosphatase Lactate Dehydrogenase 115 C-Reactive Protein 17.83 H Total Protein Albumin Carcinoembryonic Ag Pending 07/03/21 07/03/21 06:15 06:15 WBC 7.64 RBC 3.21 L Hgb 9.1 L Hct 28.9 L MCV 90.0 MCH 28.3 MCHC 31.5 L RDW 14.4 Plt Count 396 MPV 9.2 Immature Gran % 1.0 Neutrophils % 76.5 Lymphocytes % 13.7 Monocytes % 6.9 Eosinophils % 1.4 Basophils % 0.5 Nucleated RBC % 0 Absolute Neutrophils 5.83 Absolute Lymphocytes 1.05 L Absolute Monocytes 0.53 Absolute Eosinophils 0.11 Absolute Basophils 0.04 Sodium 141 Potassium 3.4 L Chloride 103 Carbon Dioxide 30.5 Anion Gap 7.5 BUN 5 L Creatinine 0.4 L Estimated GFR/1.73 m2 >= 60.00 Glucose 134 H D Calcium 8.4 L Total Bilirubin 0.6 AST 20 ALT 20 Alkaline Phosphatase 373 H Lactate Dehydrogenase C-Reactive Protein Total Protein 6.1 L Albumin 1.9 L Carcinoembryonic Ag Preliminary micro results at discharge 06/29/21 14:24 Blood Culture - Preliminary Blood NO GROWTH 96 HOURS 06/29/21 14:45 Blood Culture - Preliminary Blood NO GROWTH 96 HOURS [facility] Medical History Colon cancer Diabetes mellitus, type 2 Dyskinesia of gallbladder Hyperlipidemia Hypertension Surgical History section (~1985) Colonoscopy - MAC (08/14/16) History of appendectomy History of cholecystectomy (~06/13/21) Hx of hysterectomy 07/15/20 Ligation of fallopian tube 1990 S/P partial colectomy 2019- [place] Family History Other Diabetes Heart disease Personal history of malignant neoplasm Social History Smoking/Tobacco Use Status: Never Smoking risk assessment performed?: Yes Alcohol Intake: current Alcohol Intake frequency: holidays/special occasions only Drug use: Never Substance use type: does not use Current gender identity: female Do you feel safe at home: Yes Do you feel safe in your relationship?: Yes
--- NOTE | 2021-07-04 11:50 | CHAPLAIN ---
Sallie was resting in bed when I visited. She said she may be discharged today. She was [place] [facility] [place] in the week for a draining procedure, and returned to [facility]. She said her and son will be her later to pick her up. Her son lives in [place]. Sallie and her visited there in April, but she is happy to have her son home for a while.
--- NOTE | 2021-07-04 12:49 | PDOC.DSDIS_ITS ---
Discharge Plan Disposition Patient Disposition: HOME Condition: Improving Discharge Details Reason For Visit: abdominal pain Admit Date/Time: 06/29/21 16:27 Admit Provider: Shandra Maza Attending Provider: Shandra Maza Primary Care Provider: Candice Velazquez Home Meds and New Rx's Prescriptions: New sucralfate [Carafate] 1 gram tablet 1 g PO QACHS 30 Days Qty: 120 RF: 12 amoxicillin-pot clavulanate [Augmentin] 875-125 mg tablet 1 tab PO BID 5 Days Qty: 10 RF: 0 Bio-K plus 50 billion cell capsule,delayed release(DR/EC) 1 cap PO DAILY Qty: 30 RF: 0 lidocaine 5 % adhesive patch,medicated 1 patch topical DAILY Qty: 15 RF: 6 Continued zolpidem [Ambien] 10 mg tablet 10 mg PO QHS PRNRF: 0 losartan 100 mg tablet 100 mg PO DAILY RF: 0 glimepiride 1 MG tablet 1 mg PO DAILY RF: 0 pioglitazone [Actos] 30 MG tablet 45 mg PO DAILY RF: 0 metformin 500 MG tablet 1,000 mg PO BID RF: 0 Januvia 100 MG tablet 100 mg PO DAILY RF: 0 acetaminophen [Tylenol] 325 mg capsule 650 mg PO Q6H PRNRF: 0 tramadol 50 mg tablet 50 mg PO Q6H PRNRF: 0 citalopram 20 mg tablet 20 mg PO HS RF: 0 senna 8.6 mg capsule 8.6 mg PO DAILY RF: 0 lidocaine-prilocaine 2.5-2.5 % cream 1 applic topical ONCE RF: 0 magnesium citrate Solution 50 ml PO DAILY PRNRF: 0 dexamethasone 4 mg tablet 4 mg PO BID RF: 0 ondansetron HCl 8 mg tablet 8 mg PO Q8H RF: 0 Avastin 25 mg/mL solution IV RF: 0 simvastatin 20 mg tablet 20 mg PO DAILY RF: 0 pantoprazole [Protonix] [address] For Susp In Packet 40 mg PO DAILY RF: 0 oxycodone 5 mg tablet 5 mg PO Q6H PRNQty: 14 RF: 0 Discontinued cholestyramine (with sugar) 4 gram powder in packet PO BID PRNRF: 0 docusate sodium [Colace] 100 mg capsule 100 mg PO DAILY RF: 0 lactulose 10 gram/15 mL solution 10 g PO DAILY RF: 0 metronidazole 500 mg tablet 500 mg PO DAILY RF: 0 ciprofloxacin HCl 500 mg tablet 500 mg PO DAILY RF: 0 Discharge Instructions Additional Instructions: -No driving if you are taking pain narcotic medications. -Follow-up with Dr. Vance in 1 week. -No dietary restrictions -no straining to move bowels -pain meds are very constipating: if you do not move your bowels daily take a dose of OTC milk of magnesia or Miralax -It is ok to shower. No bathe, soaking, swimming or hot tubs -Keep wound clean and dry. Wash incision with soap and water daily. Pat dry, don't rub. -Diabetic Protein supplements daily. You may find that your appetite is smaller. Eat 3-6 small meals throughout the day. It is important to drink lots of water, 6-10 glasses a day. -If you were given an incentive spirometry (breathing transfer station attendant?), continue to do this 10x/hour while awake. -We do want you up walking, at least 5-6 times per day. This is very important to prevent pneumonia and blood clots. You can climb stairs, take them slowly. -f/u w/ oncology as soon as possible to decide when to resume chemo. -new Rx: antibiotics- finish all ProBiotic for 30 days after being on ABX. -lidocaine patches over incision for pain releif. 12 hrs on/12 off. -carafate 30 mins before meals and at bedtime for nausea. Activity:: no lifting over 20#'s x 2 wks Remove Dressings/Wound Care:: 24 hours Shower/Bathe:: 24 hours Activity:: see above Equipment/Supplies:: No Equipment Needed Diet:: Carb Counting DS: Diagnosis Discharge Diagnosis (1) Metastatic colon cancer in female: Status: Acute (2) Abdominal carcinomatosis: Status: Acute (3) Hyperlipidemia: (4) Hypertension: (5) Diabetes mellitus, type 2: Status: None (6) Abdominal pain: Status: Acute
--- NOTE | 2021-07-04 13:02 | PDOC.CMDIS ---
- If Service Date Differs Date of service: 07/04/21 Time of Service: 13:02 LACE Index Scoring Tool - Questions: Length of Stay (in days): 4 - 6 Acuity (Admit via E.D.?): No Comorbidities: Diabetes w/o Complication, with End Organ Damage, Metastatic Solid Tumor E.D. Visits: 0 - Answers: Total Score: 9 Risk of Readmission: Low Risk Care Management Discharge Reason for Hospitalization: post-op complications Discharge Plan: Discharge home via private vehicle with family. Follow up with community providers and discharge plan of care as prescribed. Sallie declines new [facility] services at this time. Patient/Family Education Needs: Review discharge instructions, medications and plan to follow up with community providers. ask me three.
[2021-07-04] MEDS: Heparin 500 UNITS/5 ML SYRINGE IVP (13:40)
--- NOTE | 2021-07-04 17:30 | INDS_ITS ---
Date of service: 07/04/21 Time of Service: 11:34 PT Notes Visit Reasons: abdominal pain Inpatient Physical Therapy Discharge Summary Date: 07/04/2021 Dates of Service: 06/30/2021 through 07/04/2021 Referring Doctor: Shandra Maza MD PT Orders: PT CONSULT: Exacerbation of chronic condition Precautions: Standard. Activity as tolerated. Patient Profile/Admitting Diagnosis: Sallie is a 56 year old female with a past medical history of diabetes, hypertension, high cholesterol, colon cancer, with last chemotherapy received early to mid May, with a cholecystectomy that was performed on 06/13/2021 presents today for abdominal pain. During the procedure performed on 06/13 the patient had a concern that the bowel may have been nicked. She stayed for an extended period at the hospital (4 to 5 days) but had no complications. She was discharged home in good health. Over the last few days she noticed continued and slightly worsening mild abdominal pain, as well as a growth/mass under the surgical incision site. While she was visiting her o ncologist she was noted to be febrile, and having continued worsening pain. She then came to the ER for worsening symptoms and further evaluation. PMHX: Medical History Colon cancer Diabetes mellitus, type 2 Dyskinesia of gallbladder Hyperlipidemia Hypertension Surgical History section (~1985) Colonoscopy - MAC (08/14/16) History of appendectomy History of cholecystectomy (~06/13/21) Hx of hysterectomy 07/15/20 Ligation of fallopian tube 1990 S/P partial colectomy 2019- [place] Social History/Home Situation: Sallie lives in [place], [place] with her Torres. She has 3 children who live in various parts of the [place]. She is independent at baseline and receives no community services. Current Functional Limitations: abdominal pain with transfers and bed mobility Equipment Owned/DME: None Subjective: NT. See most recent [employer]ED [employer]ELS DEVELOPER notes. Objective: General Observation: NT. See most recent [employer]ELS DEVELOPER notes. Mental Status: NT. See most recent [employer] PANELS DEVELOPER notes. Pain: NT. See most recent [employer]ELS DEVELOPER notes. ROM: Right Upper Extremity: Demonstrates WNL AROM R UE Left Upper Extremity: Demonstrate WNL AROM L UE Right Lower Extremity: Demonstrates WFL R LE ROM Left Lower Extremity: Demonstrates WFL L LE ROM Strength: Right Upper Extremity: Demonstrates grossly 4+-5/5 R UE Left Upper Extremity: Demonstrates grossly 4+-5/5 L UE Right Lower Extremity: Hip flexion 4/5, knee flexion 5/5, knee extension 5/5, DF 5/5 Left Lower Extremity: Hip flexion 4/5, knee flexion 5/5, knee extension 5/5, DF 5/5 Sensation: Intact to light touch. Declines parasthesias. Bed Mobility/Transfers: Rolling: Independent Supine-sit: Independent Sit-supine: Independent Sit-stand: Independent Stand-sit: Independent Gait: Able to ambulate from bed to hallway 250 feet with supervision with full weight bearing without assistive device. gait pattern unremarkable. Balance: Static Sitting: Normal Dynamic Sitting: Normal Static Standing: Normal Dynamic Standing: Good Assessment: Patient is a 56 year old female referred to physical therapy services with the diagnosis of postop complication status post open cholecystectomy. Patient has been made independent inside her room without an assistive device, supervision in the hallway due to potential change in pain level due to postoperative status. Goals X1 week 1. Supine-Sit independent MET 2. Sit-Supine independent MET 3. Sit-Stand independent MET 4. Stand-Sit independent MET 5. Bed-Chair independent MET 6. Chair-Bed independent MET 7. Gait independent 100 ft or greater NOT MET Plan of Care/Treatment Plan: 1-2x/day, 7 days/week x 1 week. Plan of care has been reviewed with the [employer] PANELS DEVELOPER providing the service under Physical Therapy direction. Initiate Physical Therapy intervention for strengthening, bed mobility, transfers, gait, stairs, balance training, use of assistive device. DISCHARGE RECOMMENDATIONS: [X] Home with no services. Home when medically cleared by hospitalist. No assistive device needed at this time. [] Home with services [specify] [] Home with outpatient PT [] [] SNF for continued rehabilitation [] [] [facility] [] [] SNF versus LTC based on ability to participate and progress [] TREATMENT CODE/TIME: NC. Thank you for the opportunity to participate in the care of this patient. Candice Torres PT, DPT, CLT [facility] [place], [place]
[2021-07-04 17:33] LABS: CEA 4.5 ng/mL (See Note)
== END 2021-07-04 13:51 | disposition home or self-care (01) | DRG 863 ==
LOC: ER 16:26 → MS 17:13
PROVIDERS: Student in an Organized Health Care Education/Training Program; Surgery; Admitting Provider Surgery; Emergency Provider Emergency Medicine; PCP Internal Medicine; Visit Provider Surgery
DX: T81.41XA Infection following a procedure, superficial incisional surgical site, initial encounter (principal); L02.211 Cutaneous abscess of abdominal wall; C78.6 Secondary malignant neoplasm of retroperitoneum and peritoneum; E11.9 Type 2 diabetes mellitus without complications; E78.5 Hyperlipidemia, unspecified; I10 Essential (primary) hypertension; Z90.49 Acquired absence of other specified parts of digestive tract; Z79.84 Long term (current) use of oral hypoglycemic drugs; Z20.822 Contact with and (suspected) exposure to COVID-19
CPT/HCPCS: 36415; 80053; 80076; 83690; 87040; 87635; 96361; 96365; 96366; 96375; 96376; 97162; 97530; 99285; J1650; 74019; 74176; 74177; 81003; 81015; 82378; 83605; 83615; 84134; 84443; 85025; 85610; 85730; 86140; 99221; J0131; J2270; J2405; J3490; J8540

== ENCOUNTER 2021-07-09 14:55 | Outpatient (CLI) | payer OTHER, SELFPAY ==
--- NOTE | 2021-07-09 14:56 | DI.RAD_ITS ---
Exam(s) XR ABDOMEN FLAT UPRIGHT EXAM: 2D digital imaging was performed. CLINICAL HISTORY: ABD PAIN, PERITENDONITIS. COMPARISON: CR XR PORTABLE CHEST AP POST LINE from 08/09/[address] ABDOMEN PELVIS WO from 06/29/2021 CR,XR XR ABDOMEN FLAT UPRIGHT from 06/30/2021 TECHNIQUE: Supine and uprightviews of the abdomen was performed. FINDINGS: BOWEL GAS PATTERN: Gas seen in colon. Moderate quantity of stool. Minimal amount of small bowel gas . Nondistended.No free air. CALCIFICATIONS: No radiopaque calcifications. OSSEOUS STRUCTURES: Degenerative changes lower lumbar spine. OTHER FINDINGS: Port right chest. Tiny right pleural effusion. Left pleural effusion. Status post cholecystectomy. IMPRESSION: 1. Nonobstructive bowel gas pattern. 2. No radiopaque calculi. 3. No free air. DATA REPOSITORY: RADIATION DOSE DELIVERED:
== END 2021-07-09 15:15 ==
PROVIDERS: PCP Internal Medicine; Visit Provider Internal Medicine
DX: R10.9 Unspecified abdominal pain (principal); J90 Pleural effusion, not elsewhere classified; Z98.890 Other specified postprocedural states
CPT/HCPCS: 74019